=== PATIENT | male | born 1955 | race American Indian/Alaskan Native ===

== ENCOUNTER 2018-06-28 12:57 | Inpatient (IN) | payer MEDICARE ==
[2018-06-28] MEDS ORDERED: NACL 0.9% 500 ML 500 ML IV ONE (14:05)
[2018-06-28] MEDS ORDERED: MORPHINE IV ONE (14:06)
[2018-06-28] MEDS ORDERED: ZOFRAN IV ONE (14:06)
[2018-06-28] MEDS ORDERED: TORADOL IV ONE (14:06)
[2018-06-28 14:43] LABS: Basophils % (Auto) 0.3 % (0.0-1.8); Eosinophils % (Auto) 0.2 % (0.0-4.3); Hematocrit 38.6 % (35.5-45.6); Hemoglobin 12.9 gm/dl (11.8-15.2); Lymphocytes # (Auto) 0.4 K/mm3 (1.2-5.4); Lymphocytes % (Auto) 7.9 % (13.4-35.0); Mean Corpuscular HGB Conc 33 % (32-34); Mean Corpuscular Volume 93 fl (84-94); Monocytes # (Auto) 0.4 K/mm3 (0.0-0.8); Monocytes % (Auto) 7.7 % (0.0-7.3); Platelet Count 298 K/mm3 (140-440); Red Blood Count 4.18 M/mm3 (3.65-5.03); Red Cell Distribution Width 13.1 % (13.2-15.2)
--- NOTE | 2018-06-28 15:07 | Emergency Department Report ---
ED Abdominal Pain HPI - General Chief Complaint: Recheck/Abnormal Lab/Rx Stated Complaint: ABNORMAL LABS Time Seen by Provider: 06/28/18 13:55 Source: EMS Mode of arrival: Ambulatory Limitations: Physical Limitation - History of Present Illness Initial Comments: 63-year-old male with past medical history of cerebral palsy, hypertension, CVA, CHF, and arthritis this is also complaints of abdominal pain. Is unclear how long patient has been hurting. He presents from [facility] with abdominal and obviously distended abdomen. Rehabilitation nursing sheet states reason for transfer as hypotension but then documents a BP of 120/80 at the long term. Other long term vital signs also were unremarkable. Recent head injury and abdominal x-ray 1 view performance on 06/24/2018 and shows mild colonic ileus that was performed at the rehabilitation place. Patient complains of decreased appetite. Last bowel movement unknown and complains of moderate abdominal pain worse with palpation. He complains of decreased appetite but no reports of vomiting. Patient also has a Gomez catheter and denies history of previous abdominal surgeries. Severity scale (0 -10): 8 - Related Data Home Medications Medication Instructions Recorded Confirmed Last Taken Acetaminophen [Tylenol] 650 mg PO Q4H PRN 02/10/18 02/18/18 Unknown AtorvaSTATin [Lipitor] 10 mg PO QHS 02/10/18 02/18/18 Unknown Baclofen 20 mg PO Q8H 02/10/18 02/18/18 Unknown Calcium Carbonate/Vitamin D3 1 each PO BID 02/10/18 02/18/18 Unknown [Calcium 600-Vit D3 400 Tablet] Clopidogrel [Plavix] 75 mg PO QDAY 02/10/18 02/18/18 Unknown Duloxetine HCl [Cymbalta] 60 mg PO DAILY 02/10/18 02/18/18 Unknown Isosorbide Dinitrate 30 mg PO DAILY 02/10/18 02/18/18 Unknown Linaclotide [Linzess] 290 mcg PO QDAY 02/10/18 02/18/18 Unknown Lisinopril [Zestril TAB] 10 mg PO QDAY 02/10/18 02/18/18 Unknown Omeprazole 20 mg PO DAILY 02/10/18 02/18/18 Unknown Sennosides [Senokot] 17.2 mg PO QHS 02/10/18 02/18/18 Unknown Digoxin [Digox] 125 mcg PO DAILY 02/18/18 02/18/18 Unknown [place] 5-325 Tablet 5 - 325 mg PO BID PRN 02/18/18 02/18/18 Unknown Allergies Allergy/AdvReac Type Severity Reaction Status Date / Time No Known Allergies Allergy Unverified 02/10/18 16:42 ED Review of Systems ROS: Stated complaint: ABNORMAL LABS Other details as noted in HPI Comment: All other systems reviewed and negative ED Past Medical Hx - Past Medical History Previous Medical History?: Yes Hx Hypertension: Yes Hx CVA: Yes Hx Heart Attack/AMI: No Hx Congestive Heart Failure: Yes Hx Diabetes: No Hx Deep Vein Thrombosis: No Hx Pulmonary Embolism: No Hx GERD: Yes Hx Liver Disease: No Hx Renal Disease: No Hx Sickle Cell Disease: No Hx Arthritis: Yes Hx Headaches / Migraines: No Hx Seizures: No Hx Kidney Stones: No Hx Psychiatric Treatment: No Hx Asthma: No Hx COPD: No Hx Tuberculosis: No Hx Dementia: No Hx HIV: (unknown) - Surgical History Past Surgical History?: Yes Hx Coronary Stent: No Hx Open Heart Surgery: No Hx Pacemaker: No Hx Internal Defibrillator: No Hx Cholecystectomy: No Hx Appendectomy: No Hx Breast Surgery: No Additional Surgical History: unknown - Social History Smoking Status: Unknown if ever smoked Substance Use Type: None - Medications Home Medications: Home Medications Medication Instructions Recorded Confirmed Last Taken Type Acetaminophen [Tylenol] 650 mg PO Q4H PRN 02/10/18 02/18/18 Unknown History AtorvaSTATin [Lipitor] 10 mg PO QHS 02/10/18 02/18/18 Unknown History Baclofen 20 mg PO Q8H 02/10/18 02/18/18 Unknown History Calcium Carbonate/Vitamin D3 1 each PO BID 02/10/18 02/18/18 Unknown History [Calcium 600-Vit D3 400 Tablet] Clopidogrel [Plavix] 75 mg PO QDAY 02/10/18 02/18/18 Unknown History Duloxetine HCl [Cymbalta] 60 mg PO DAILY 02/10/18 02/18/18 Unknown History Isosorbide Dinitrate 30 mg PO DAILY 02/10/18 02/18/18 Unknown History Linaclotide [Linzess] 290 mcg PO QDAY 02/10/18 02/18/18 Unknown History Lisinopril [Zestril TAB] 10 mg PO QDAY 02/10/18 02/18/18 Unknown History Omeprazole 20 mg PO DAILY 02/10/18 02/18/18 Unknown History Sennosides [Senokot] 17.2 mg PO QHS 02/10/18 02/18/18 Unknown History Digoxin [Digox] 125 mcg PO DAILY 02/18/18 02/18/18 Unknown History [place] 5-325 Tablet 5 - 325 mg PO BID PRN 02/18/18 02/18/18 Unknown History ED Physical Exam - General Limitations: Physical Limitation - Other Other exam information: General: No limitations, patient is alert in no acute distress Head exam: Atraumatic, normocephalic Eyes exam: Normal appearance, ENT: Moist mucous membrane, normal oropharynx Neck exam: Normal inspection, full range of motion, no meningismus nontender Respiratory exam: Clear to auscultation bilateral, no wheezes, rales, crackles Cardiovascular: Mild tachycardia, systolic murmur Abdomen: From an significantly distended abdomen with generalized tenderness. Increased bowel sounds. No rebound or guarding Extremity: Full range of motion normal inspection no deformity Back: Normal Inspection, full range of motion, no tenderness Neurologic: Alert, some mildly slurred speech. Moves upper extremities equally but does have some muscle atrophy of extremities. Appears to be functionally paraplegic with minimal movement to lower extremities Psychiatric: normal affect, normal mood Skin: Warm, dry, intact ED Course Vital Signs 06/28/18 06/28/18 06/28/18 13:40 14:05 14:12 Temperature 98 F 97.8 F Pulse Rate 86 107 H 103 H Respiratory 18 19 16 Rate Blood Pressure 120/80 Blood Pressure 129/82 [Left] O2 Sat by Pulse 100 97 100 Oximetry 06/28/18 06/28/18 06/28/18 14:13 14:30 15:30 Temperature Pulse Rate 111 H 100 H Respiratory 18 19 15 Rate Blood Pressure 117/77 125/85 Blood Pressure [Left] O2 Sat by Pulse 94 95 Oximetry 06/28/18 06/28/18 16:30 17:00 Temperature Pulse Rate 102 H 101 H Respiratory 17 16 Rate Blood Pressure 122/88 112/88 Blood Pressure [Left] O2 Sat by Pulse 94 Oximetry - Consultations Consultation #1: 06/28/18 17:56 Dr Morgan came down to the ED to examine pt. awaiting ct report 06/28/18 19:49 Dr Morgan rec admission, will place rectal tube if available in the ED. ED Medical Decision Making - Lab Data Result diagrams: 06/28/18 14:16 06/28/18 14:16 Lab Results 06/28/18 06/28/18 06/28/18 Range/Units 14:16 14:16 15:13 WBC 5.4 (4.5-11.0) K/mm3 RBC 4.18 (3.65-5.03) M/mm3 Hgb 12.9 (11.8-15.2) gm/dl Hct 38.6 (35.5-45.6) % MCV 93 (84-94) fl MCH 31 (28-32) pg MCHC 33 (32-34) % RDW 13.1 L (13.2-15.2) % Plt Count 298 (140-440) K/mm3 Lymph % (Auto) 7.9 L (13.4-35.0) % Page % (Auto) 7.7 H (0.0-7.3) % Eos % (Auto) 0.2 (0.0-4.3) % Baso % (Auto) 0.3 (0.0-1.8) % Lymph # 0.4 L (1.2-5.4) K/mm3 Page # 0.4 (0.0-0.8) K/mm3 Eos # 0.0 (0.0-0.4) K/mm3 Baso # 0.0 (0.0-0.1) K/mm3 Seg Neutrophils % 83.9 H (40.0-70.0) % Seg Neutrophils # 4.6 (1.8-7.7) K/mm3 Sodium 128 L (137-145) mmol/L Potassium 3.0 L (3.6-5.0) mmol/L Chloride 89.3 L (98-107) mmol/L Carbon Dioxide 23 (22-30) mmol/L Anion Gap 19 mmol/L BUN 6 L (9-20) mg/dL Creatinine 0.4 L (0.8-1.5) mg/dL Estimated GFR > 60 ml/min BUN/Creatinine Ratio 15 % Glucose 97 (75-100) mg/dL Calcium 9.1 (8.4-10.2) mg/dL Phosphorus (2.5-4.5) mg/dL Magnesium 1.70 (1.7-2.3) mg/dL Total Bilirubin 0.80 (0.1-1.2) mg/dL AST 14 (5-40) units/L ALT 12 (7-56) units/L Alkaline Phosphatase 58 (35-129) units/L Total Protein 7.3 (6.3-8.2) g/dL Albumin 4.2 (3.9-5) g/dL Albumin/Globulin Ratio 1.4 % Lipase 15 (13-60) units/L /11/08 Range/Units 19:02 WBC (4.5-11.0) K/mm3 RBC (3.65-5.03) M/mm3 Hgb (11.8-15.2) gm/dl Hct (35.5-45.6) % MCV (84-94) fl MCH (28-32) pg MCHC (32-34) % RDW (13.2-15.2) % Plt Count (140-440) K/mm3 Lymph % (Auto) (13.4-35.0) % Page % (Auto) (0.0-7.3) % Eos % (Auto) (0.0-4.3) % Baso % (Auto) (0.0-1.8) % Lymph # (1.2-5.4) K/mm3 Page # (0.0-0.8) K/mm3 Eos # (0.0-0.4) K/mm3 Baso # (0.0-0.1) K/mm3 Seg Neutrophils % (40.0-70.0) % Seg Neutrophils # (1.8-7.7) K/mm3 Sodium (137-145) mmol/L Potassium (3.6-5.0) mmol/L Chloride (98-107) mmol/L Carbon Dioxide (22-30) mmol/L Anion Gap mmol/L BUN (9-20) mg/dL Creatinine (0.8-1.5) mg/dL Estimated GFR ml/min BUN/Creatinine Ratio % Glucose (75-100) mg/dL Calcium (8.4-10.2) mg/dL Phosphorus 4.00 (2.5-4.5) mg/dL Magnesium 1.70 (1.7-2.3) mg/dL Total Bilirubin (0.1-1.2) mg/dL AST (5-40) units/L ALT (7-56) units/L Alkaline Phosphatase (35-129) units/L Total Protein (6.3-8.2) g/dL Albumin (3.9-5) g/dL Albumin/Globulin Ratio % Lipase (13-60) units/L - Radiology Data Radiology results: report reviewed PROCEDURE: XR ABD SERIES W CXR 1V TECHNIQUE: Acute abdominal series, single view chest and 3 views of the abdomen. HISTORY: abd distention COMPARISONS: None currently available. FINDINGS: Lungs are clear. Moderate to marked distention of the large and small bowel loops. No obvious pneumatosis or pneumoperitoneum. No significant air-fluid levels. No suspicious calcifications overlying the renal shadows. Pelvic phleboliths. Degenerative changes are present in the spine and hips. IMPRESSION: * Nonspecific bowel gas pattern. Differential diagnosis includes obstruction, severe enteritis, and ileus. Further imaging with a CT abdomen pelvis may be helpful if clinically indicated. PROCEDURE: CT ABDOMEN PELVIS W CON (ORAL AND IV CONTRAST GIVEN) TECHNIQUE: Computerized axial tomography of the abdomen and pelvis was performed after the IV injection of iodinated nonionic contrast. CT DOSE LENGTH PRODUCT: 1123.6 mGycm HISTORY: abdominal distention COMPARISONS: None . FINDINGS: Visualized lower thorax: Bilateral lung base scarring. Liver: Normal size and attenuation. Spleen: Normal size and attenuation. Gallbladder and biliary system: Gallbladder is present. Pancreas: Normal. Adrenals: Normal. Kidneys: Possible nonobstructing right kidney lower pole 3 mm calculus versus excreted contrast material. GI tract: The colon is diffusely distended with fluid and air up to 8.8 cm transverse, to the level of the distal rectum . Small bowel loops are not distended. No prior studies are available to evaluate the patient's baseline, however cannot exclude a distal colonic obstruction. No acute inflammation Lymph nodes and mesentery: Normal. Vasculature: Normal.. Bladder: Decompressed with Gomez catheter. Reproductive organs: Normal. Peritoneum: No free fluid. Musculoskeletal structures: Lumbar spine degenerative disc changes. Other: None . IMPRESSION: Diffuse colonic dilatation with air and fluid to the level of the distal rectum is of uncertain chronicity. Cannot fully exclude distal rectal obstruction. Recommend follow-up . - Medical Decision Making case d/w Gen surgery NS 500ml provided for hyponatremia IV kcl 20meq ordered for hypokalemia plan to admit to hospital for further tx based on imaging studies - Differential Diagnosis obstruction, ileus, ascites Critical Care Time: No Critical care attestation.: If time is entered above; I have spent that time in minutes in the direct care of this critically ill patient, excluding procedure time. ED Disposition Clinical Impression: Abdominal distension, Dilatation of colon, Cerebral palsy, Bedbound, Hyponatr emia, Hypokalemia Disposition: OP ADMIT IP TO THIS HOSP Is pt being admited?: Yes Condition: Stable Time of Disposition: 19:53 (Dr Mora/hosp)
[2018-06-28 15:09] LABS: Alanine Aminotransferase 12 units/L (7-56); Albumin 4.2 g/dL (3.9-5); BUN/Creatinine Ratio 15; Blood Urea Nitrogen 6 mg/dL (9-20); Calcium 9.1 mg/dL (8.4-10.2); Hemolysis Index 3
--- NOTE | 2018-06-28 15:53 | XRay Report ---
PROCEDURE: XR ABD SERIES W CXR 1V TECHNIQUE: Acute abdominal series, single view chest and 3 views of the abdomen. HISTORY: abd distention COMPARISONS: None currently available. FINDINGS: Lungs are clear. Moderate to marked distention of the large and small bowel loops. No obvious pneumatosis or pneumoper itoneum. No significant air-fluid levels. No suspicious calcifications overlying the renal shadows. Pelvic phleboliths. Degenerative changes are present in the spine and hips. IMPRESSION: * Nonspecific bowel gas pattern. Differential diagnosis includes obstruction, severe enteritis, and ileus. Further imaging with a CT abdomen pelvis may be helpful if clinically indicated. * 06/28/2018 at 1251 PT: I, Mauricio Sarah MD, discussed the findings over the phone with Dr. Banda. This document is electronically signed by Mauricio Sarah MD., June 28 2018 03:51:51 PM ET
[2018-06-28] MEDS ORDERED: MORPHINE ONE (18:26)
[2018-06-28] MEDS: KCL 10MEQ/100ML 10 MEQ/100 ML BAG IV SCH ×2 (18:27→20:18)
--- NOTE | 2018-06-28 18:33 | Consultation ---
History of Present Illness Consult date: 06/28/18 Reason for consult: abdominal pain Chief complaint: abdominal distension, pain - History of present illness History of present illness: 63 yo M with hx of cerebral palsy [facility] abnormal labs and hypotension. The family is at bedside but unsure of why the patient was brought to the hospital. The patient can provide some history when asked but is difficult to understand due to his speech. The patient was normotensive on arrival to ER. He c/o abdominal distension. He has not had vomiting but states sometimes it feels like the food is going to come back up. He is having abdominal discomfort but cannot elaborate. He is having BMs and flatus, last BM today. He has had symptoms like this in the past which did not require surgery. No f/c, cp, sob. Abd xray performed several days ago showed "mild colonic ileus" per the report. Pt is immobile, nonambulatory and in frequently turned and [facility] patient. Last cscope approximately 5 years ago, cannot remember results. Past History Past Medical History: arthritis, hypertension, stroke, other (cerebral palsy, CHF) Medications and Allergies Allergies Allergy/AdvReac Type Severity Reaction Status Date / Time No Known Allergies Allergy Unverified 02/10/18 16:42 Home Medications Medication Instructions Recorded Confirmed Last Taken Type Acetaminophen [Tylenol] 650 mg PO Q4H PRN 02/10/18 02/18/18 Unknown History AtorvaSTATin [Lipitor] 10 mg PO QHS 02/10/18 02/18/18 Unknown History Baclofen 20 mg PO Q8H 02/10/18 02/18/18 Unknown History Calcium Carbonate/Vitamin D3 1 each PO BID 02/10/18 02/18/18 Unknown History [Calcium 600-Vit D3 400 Tablet] Clopidogrel [Plavix] 75 mg PO QDAY 02/10/18 02/18/18 Unknown History Duloxetine HCl [Cymbalta] 60 mg PO DAILY 02/10/18 02/18/18 Unknown History Isosorbide Dinitrate 30 mg PO DAILY 02/10/18 02/18/18 Unknown History Linaclotide [Linzess] 290 mcg PO QDAY 02/10/18 02/18/18 Unknown History Lisinopril [Zestril TAB] 10 mg PO QDAY 02/10/18 02/18/18 Unknown History Omeprazole 20 mg PO DAILY 02/10/18 02/18/18 Unknown History Sennosides [Senokot] 17.2 mg PO QHS 02/10/18 02/18/18 Unknown History Digoxin [Digox] 125 mcg PO DAILY 02/18/18 02/18/18 Unknown History [place] 5-325 Tablet 5 - 325 mg PO BID PRN 02/18/18 02/18/18 Unknown History Review of Systems All systems: negative (limited ROS performed and negative except for that listed in HPI) Exam Vital Signs Temp Pulse Resp BP Pulse Ox 98 F 86 18 120/80 100 06/28/18 13:40 06/28/18 13:40 06/28/18 13:40 06/28/18 13:40 06/28/18 13:40 Narrative exam: Gen: Awake and alert. NAD. Answers questions appropriately ENT: No scleral icterus or conjunctival pallor CV: s1, s2+ resp; even and unlabored Abd: soft, distended, NT. No r/r/g Ext: no c/c/e, contracted Rectal exam - normal tone, no blood, no stool in rectal vault but rectal vault is dilated. No masses palpable. 20F arnold catheter gently inserted using digital guidance to approximately 8 cm. There was immediate ko of air out of tubing. Tubing connected to arnold bag with hole cut in the plastic for decompression. Tube secured to buttock with tape. (receiving lead present) Results - Labs 06/28/18 14:16 06/28/18 14:16 Abnormal lab results 06/28/18 06/28/18 Range/Units 14:16 14:16 RDW 13.1 L (13.2-15.2) % Lymph % (Auto) 7.9 L (13.4-35.0) % [place] % (Auto) 7.7 H (0.0-7.3) % Lymph # 0.4 L (1.2-5.4) K/mm3 Seg Neutrophils % 83.9 H (40.0-70.0) % Sodium 128 L (137-145) mmol/L Potassium 3.0 L (3.6-5.0) mmol/L Chloride 89.3 L (98-107) mmol/L BUN 6 L (9-20) mg/dL Creatinine 0.4 L (0.8-1.5) mg/dL Diabetes panel 06/28/18 Range/Units 14:16 Sodium 128 L (137-145) mmol/L Potassium 3.0 L (3.6-5.0) mmol/L Chloride 89.3 L (98-107) mmol/L Carbon Dioxide 23 (22-30) mmol/L BUN 6 L (9-20) mg/dL Creatinine 0.4 L (0.8-1.5) mg/dL Glucose 97 (75-100) mg/dL Calcium 9.1 (8.4-10.2) mg/dL AST 14 (5-40) units/L ALT 12 (7-56) units/L Alkaline Phosphatase 58 (35-129) units/L Total Protein 7.3 (6.3-8.2) g/dL Albumin 4.2 (3.9-5) g/dL Calcium panel 06/28/18 Range/Units 14:16 Calcium 9.1 (8.4-10.2) mg/dL Albumin 4.2 (3.9-5) g/dL Pituitary panel 06/28/18 Range/Units 14:16 Sodium 128 L (137-145) mmol/L Potassium 3.0 L (3.6-5.0) mmol/L Chloride 89.3 L (98-107) mmol/L Carbon Dioxide 23 (22-30) mmol/L BUN 6 L (9-20) mg/dL Creatinine 0.4 L (0.8-1.5) mg/dL Glucose 97 (75-100) mg/dL Calcium 9.1 (8.4-10.2) mg/dL Adrenal panel 06/28/18 Range/Units 14:16 Sodium 128 L (137-145) mmol/L Potassium 3.0 L (3.6-5.0) mmol/L Chloride 89.3 L (98-107) mmol/L Carbon Dioxide 23 (22-30) mmol/L BUN 6 L (9-20) mg/dL Creatinine 0.4 L (0.8-1.5) mg/dL Glucose 97 (75-100) mg/dL Calcium 9.1 (8.4-10.2) mg/dL Total Bilirubin 0.80 (0.1-1.2) mg/dL AST 14 (5-40) units/L ALT 12 (7-56) units/L Alkaline Phosphatase 58 (35-129) units/L Total Protein 7.3 (6.3-8.2) g/dL Albumin 4.2 (3.9-5) g/dL - Imaging Abdominal x-ray: report reviewed, image reviewed CT scan - abdomen: report reviewed, image reviewed CT scan - pelvis: report reviewed, image reviewed Assessment and Plan 63 yo M with 1. colonic ileus 2. electrolyte abnormalities 3. cerebral palsy Ct A/P - dilated colon. cannot r/o distal rectal obstruction Plan: No masses felt on rectal exam and immediate evacuation of air upon insertion of rectal tube. Pt with bowel function. Doubt distal rectal obstruction. 1. ok to have clear liquids 2. IVF 3. replace lytes 4. BMP in am 5. rectal tube placed to help with colonic decompression 6. physical therapy consult. patient needs to be OOB BID and turned q2. Explained plan to family at bedside and on the telephone. Thank you, please call with questions.
--- NOTE | 2018-06-28 19:24 | Cat Scan Report ---
PROCEDURE: CT ABDOMEN PELVIS W CON TECHNIQUE: Computerized axial tomography of the abdomen and pelvis was performed after the IV inject ion of iodinated nonionic contrast. CT DOSE LENGTH PRODUCT: 1123.6 mGycm HISTORY: abdominal distention COMPARISONS: None . FINDINGS: Visualized lower thorax: Bilateral lung base scarring. Liver: Normal size and attenuation. Spleen: Normal size and attenuation. Gallbladder and biliary system: Gallbladder is present. Pancreas: Normal. Adrenals: Normal. Kidneys: Possible nonobstructing right kidney lower pole 3 mm calculus versus excreted contrast mater ial. GI tract: The colon is diffusely distended with fluid and air up to 8.8 cm transverse, to the level of the distal rectum . Small bowel loops are not distended. No prior studies are available to evaluat e the patient's baseline, however cannot exclude a distal colonic obstruction. No acute inflammation Lymph nodes and mesentery: Normal. Vasculature: Normal.. Bladder: Decompressed with Gomez catheter. Reproductive organs: Normal. Peritoneum: No free fluid. Musculoskeletal structures: Lumbar spine degenerative disc changes. Other: None . IMPRESSION: Diffuse colonic dilatation with air and fluid to the level of the distal rectum is of uncertain chron icity. Cannot fully exclude distal rectal obstruction. Recommend follow-up . This document is electronically signed by Ellen Pretty MD., June 28 2018 07:22:26 PM ET
--- NOTE | 2018-06-28 19:54 | History and Physical Report ---
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 Pt is confused and provided limited incoherent history. Pt history taken from medical record, and ED staff. As per SNF staff, the patient was found to have hypotension, confusion and weakness today. EMS was notified and upon arrival the patient was found to be in distress with abdominal distention. Pt was subsequently transported to [facility] for further care and evaluation. Pt seen and evaluated in ED and found to have Encephalopathy, Colonic Ileus(Megacolon), Hyponatremia, and Hyokalemia. Surgical team consulted in ED. Pt admitted to surgical floor. No further history obtainable. Prior admission on 02/18/18 reviewed. All listed medication reconciled at time of admission. Complete medication list pending at time of admission. Past History Past Medical History: arthritis, hypertension, stroke, other (cerebral palsy, CHF) Medications and Allergies Allergies Allergy/AdvReac Type Severity Reaction Status Date / Time No Known Allergies Allergy Unverified 02/10/18 16:42 Home Medications Medication Instructions Recorded Confirmed Last Taken Type Acetaminophen [Tylenol] 650 mg PO Q4H PRN 02/10/18 02/18/18 Unknown History AtorvaSTATin [Lipitor] 10 mg PO QHS 02/10/18 02/18/18 Unknown History Baclofen 20 mg PO Q8H 02/10/18 02/18/18 Unknown History Calcium Carbonate/Vitamin D3 1 each PO BID 02/10/18 02/18/18 Unknown History [Calcium 600-Vit D3 400 Tablet] Clopidogrel [Plavix] 75 mg PO QDAY 02/10/18 02/18/18 Unknown History Duloxetine HCl [Cymbalta] 60 mg PO DAILY 02/10/18 02/18/18 Unknown History Isosorbide Dinitrate 30 mg PO DAILY 02/10/18 02/18/18 Unknown History Linaclotide [Linzess] 290 mcg PO QDAY 02/10/18 02/18/18 Unknown History Lisinopril [Zestril TAB] 10 mg PO QDAY 02/10/18 02/18/18 Unknown History Omeprazole 20 mg PO DAILY 11/21/18 11/29/18 Unknown History Sennosides [Senokot] 17.2 mg PO QHS 02/10/18 02/18/18 Unknown History Digoxin [Digox] 125 mcg PO DAILY 02/18/18 02/18/18 Unknown History [place] 5-325 Tablet 5 - 325 mg PO BID PRN 02/18/18 02/18/18 Unknown History Review of Systems ROS unobtainable: due to mental status Exam - Constitutional Vitals: Temp Pulse Resp BP Pulse Ox 97.8 F 101 H 16 112/88 94 06/28/18 14:12 06/28/18 17:00 06/28/18 17:00 06/28/18 17:00 06/28/18 16:30 General appearance: Present: mild distress - EENT Eyes: Present: PERRL ENT: hearing intact, clear oral mucosa - Neck Neck: Present: supple, normal ROM - Respiratory Respiratory effort: normal Respiratory: bilateral: CTA - Cardiovascular Heart Sounds: Present: S1 & S2. Absent: rub, click - Extremities Extremities: pulses symmetrical, No edema Peripheral Pulses: within normal limits - Abdominal General gastrointestinal: Present: soft, distended, normal bowel sounds. Absent: hepatomegaly, splenomegaly, mass Male genitourinary: Absent: tender, right inguinal hernia, left inguinal hernia - Rectal Rectal Exam: normal exam-external/orifice - Integumentary Integumentary: Absent: clear, dry - Musculoskeletal Musculoskeletal: generalized weakness - Psychiatric Psychiatric: no appropriate mood/affect, no intact judgment & insight, no memory intact - Neurologic Neurologic: focal deficits, moves all extremities, no gait normal Results - Labs CBC & Chem 7: 06/28/18 14:16 06/28/18 14:16 Labs: Abnormal lab results 06/28/18 06/28/18 Range/Units 14:16 14:16 RDW 13.1 L (13.2-15.2) % Lymph % (Auto) 7.9 L (13.4-35.0) % [place] % (Auto) 7.7 H (0.0-7.3) % Lymph # 0.4 L (1.2-5.4) K/mm3 Seg Neutrophils % 83.9 H (40.0-70.0) % Sodium 128 L (137-145) mmol/L Potassium 3.0 L (3.6-5.0) mmol/L Chloride 89.3 L (98-107) mmol/L BUN 6 L (9-20) mg/dL Creatinine 0.4 L (0.8-1.5) mg/dL Assessment and Plan - Patient Problems (1) Abdominal distension Current Visit: Yes Status: Acute Plan to address problem: CT ABdomen pelvis, ABdomen xray, Repeat abdomen x ray in am, surgery team consulted in ED, bowel rest, IVF resuscitation therapy, lactic acid level, serial abdominal exam. (2) Cerebral palsy Current Visit: Yes Status: Acute Qualifiers: Cerebral palsy type: unspecified type Qualified Code(s): G80.9 - Cerebral palsy, unspecified Plan to address problem: Aspiration precautions, neuro checks, seizure precautions, fall precautions, supportive care. (3) Hypokalemia Current Visit: Yes Status: Acute Plan to address problem: repleted in ED, repeat bmp in AM. (4) Hyponatremia Current Visit: Yes Status: Acute Plan to address problem: IVF resuscitation therapy, repeat bmp in am. (5) DVT prophylaxis Current Visit: No Status: Acute Plan to address problem: SCD to BLE while in bed.
[2018-06-28] MEDS ORDERED: PROVENTIL IH PRN (20:00)
[2018-06-28] MEDS ORDERED: SODIUM CHLORIDE FLUSH SYRINGE 10 ML IV PRN (20:00)
[2018-06-28] MEDS ORDERED: KCL 10MEQ/100ML 10 MEQ/100 ML BAG IV ONE (20:12)
[2018-06-28] MEDS ORDERED: ACETAMINOPHEN 650 MG PO PRN (20:41)
[2018-06-28] MEDS ORDERED: TYLENOL PO PRN (20:51)
[2018-06-28] MEDS ORDERED: SENNOSIDES 17.2 MG PO SCH (22:00)
[2018-06-28] MEDS: LOVENOX SUB-Q SCH (22:18)
[2018-06-28] MEDS: SODIUM CHLORIDE FLUSH SYRINGE 10 ML IV SCH (22:19)
[2018-06-28] MEDS: NACL 0.9% 1000 ML 1,000 ML IV SCH (22:19)
[2018-06-28] MEDS: SENOKOT PO SCH (22:36)
[2018-06-29 04:57] LABS: Basophils % (Auto) 0.5 % (0.0-1.8); Eosinophils % (Auto) 0.7 % (0.0-4.3); Hematocrit 35.6 % (35.5-45.6); Hemoglobin 11.9 gm/dl (11.8-15.2); Lymphocytes # (Auto) 0.7 K/mm3 (1.2-5.4); Lymphocytes % (Auto) 16.8 % (13.4-35.0); Mean Corpuscular HGB Conc 34 % (32-34); Mean Corpuscular Volume 93 fl (84-94); Monocytes # (Auto) 0.4 K/mm3 (0.0-0.8); Platelet Count 282 K/mm3 (140-440); Red Blood Count 3.81 M/mm3 (3.65-5.03); Red Cell Distribution Width 12.9 % (13.2-15.2)
[2018-06-29 05:15] LABS: BUN/Creatinine Ratio 13; Blood Urea Nitrogen 5 mg/dL (9-20); Calcium 8.8 mg/dL (8.4-10.2); Hemolysis Index 4
--- NOTE | 2018-06-29 08:03 | XRay Report ---
ABDOMEN, 2 views: History: Abdominal pain. Diffuse marked dilatation of the colon is essentially unchanged since the CT abdomen pelvis performed 06/28/18. Oral contrast has advanced into the proximal colon. There is mild stool within the distal colon. No obvious dilated small bowel loops. No free air is visualized on the upright view. The lungs are grossly clear. IMPRESSION: No change in the diffuse colonic dilatation of uncertain etiology.
[2018-06-29] MEDS: NACL 0.9% 1000 ML 1,000 ML IV SCH (08:20)
[2018-06-29] MEDS: PROTONIX PO SCH (09:36)
[2018-06-29] MEDS: SODIUM CHLORIDE FLUSH SYRINGE 10 ML IV SCH ×2 (09:36→21:01)
[2018-06-29] MEDS: ZESTRIL PO SCH (10:00)
--- NOTE | 2018-06-29 10:23 | Progress Note ---
Assessment and Plan Assessment and plan: Ileus Admitted to surgical floor Surgeon following Start mechanical soft diet Re-evaluate tomorrow Cerebral palsy Conservative management Hyponatremia Improving 130 today Recheck tomorrow Hypokalemia Resolved after replacement Debility Hypertension Monitor BP. History Interval history: feels better Less abd pain Hospitalist Physical - Physical exam Narrative exam: Gen: Not in acute distress, lying in bed HEENT: Normocephalic, atraumatic Heart: S1 and S2 reg, no murmurs, rubs or gallop Lungs: Bilateral ronchi, no crackles, Abd: soft, mild tender, mild distension, bowel sounds present Ext: No edema, no clubbing, no cyanosis Neuro: AAO x 3, no focal signs, moves all ext Psych:Normal mood - Constitutional Vitals: Temp Pulse Resp BP Pulse Ox 97.8 F 92 H 15 117/80 100 06/29/18 09:45 06/29/18 09:45 06/29/18 09:45 06/29/18 09:45 06/29/18 09:45 General appearance: Present: mild distress Results - Labs CBC & Chem 7: 06/29/18 04:20 06/30/18 07:27 Labs: Laboratory Last Values WBC 4.1 K/mm3 (4.5-11.0) L 06/29/18 04:20 RBC 3.81 M/mm3 (3.65-5.03) 06/29/18 04:20 Hgb 11.9 gm/dl (11.8-15.2) 06/29/18 04:20 Hct 35.6 % (35.5-45.6) 06/29/18 04:20 MCV 93 fl (84-94) 06/29/18 04:20 MCH 31 pg (28-32) 06/29/18 04:20 MCHC 34 % (32-34) 06/29/18 04:20 RDW 12.9 % (13.2-15.2) L 06/29/18 04:20 Plt Count 282 K/mm3 (140-440) 06/29/18 04:20 Lymph % (Auto) 16.8 % (13.4-35.0) 06/29/18 04:20 [place] % (Auto) 11.0 % (0.0-7.3) H 06/29/18 04:20 Eos % (Auto) 0.7 % (0.0-4.3) 06/29/18 04:20 Baso % (Auto) 0.5 % (0.0-1.8) 06/29/18 04:20 Lymph # 0.7 K/mm3 (1.2-5.4) L 06/29/18 04:20 Scott # 0.4 K/mm3 (0.0-0.8) 06/29/18 04:20 Eos # 0.0 K/mm3 (0.0-0.4) 06/29/18 04:20 Baso # 0.0 K/mm3 (0.0-0.1) 06/29/18 04:20 Seg Neutrophils % 71.0 % (40.0-70.0) H 06/29/18 04:20 Seg Neutrophils # 2.9 K/mm3 (1.8-7.7) 06/29/18 04:20 Sodium 130 mmol/L (137-145) L 06/29/18 04:20 Potassium 4.0 mmol/L (3.6-5.0) D 06/29/18 04:20 Chloride 92.9 mmol/L (98-107) L 06/29/18 04:20 Carbon Dioxide 25 mmol/L (22-30) 06/29/18 04:20 Anion Gap 16 mmol/L 06/29/18 04:20 BUN 5 mg/dL (9-20) L 06/29/18 04:20 Creatinine 0.4 mg/dL (0.8-1.5) L 06/29/18 04:20 Estimated GFR > 60 ml/min 06/29/18 04:20 BUN/Creatinine Ratio 13 % 06/29/18 04:20 Glucose 79 mg/dL (75-100) 06/29/18 04:20 POC Glucose 83 (70-105) 06/28/18 21:37 Lactic Acid 0.80 mmol/L (0.7-2.0) 06/29/18 04:30 Calcium 8.8 mg/dL (8.4-10.2) 06/29/18 04:20 Phosphorus 4.00 mg/dL (2.5-4.5) 06/28/18 19:02 Magnesium 1.70 mg/dL (1.7-2.3) 04/08/19 19:02 Total Bilirubin 0.80 mg/dL (0.1-1.2) 06/28/18 14:16 AST 14 units/L (5-40) 06/28/18 14:16 ALT 12 units/L (7-56) 06/28/18 14:16 Alkaline Phosphatase 58 units/L (35-129) 06/28/18 14:16 Total Protein 7.3 g/dL (6.3-8.2) 06/28/18 14:16 Albumin 4.2 g/dL (3.9-5) 06/28/18 14:16 Albumin/Globulin Ratio 1.4 % 06/28/18 14:16 Lipase 15 units/L (13-60) 06/28/18 14:16 Active Medications - Current Medications Current Medications: Generic Name Dose Route Start Last Admin Trade Name Freq PRN Reason Stop Dose Admin Acetaminophen 650 mg 06/28/18 20:51 Tylenol PO Q4H PRN Pain, Mild (1-3) Albuterol 2.5 mg 06/28/18 20:00 Proventil IH Q3HRT PRN Shortness Of Breath Enoxaparin Sodium 40 mg 06/28/18 22:00 06/28/18 22:18 Lovenox SUB-Q 40 mg QDAY@2200 PRINCESS Administration Sodium Chloride 1,000 mls @ 100 mls/hr 06/28/18 21:00 06/29/18 08:20 Nacl 0.9% 1000 Ml IV 100 mls/hr DIRECT PRINCESS Administration Lisinopril 10 mg 06/29/18 10:00 Zestril PO QDAY PRINCESS Pantoprazole Sodium 20 mg 06/29/18 10:00 06/29/18 09:36 Protonix PO 20 mg DAILY PRINCESS Administration Senna 17.2 mg 06/28/18 23:30 06/28/18 22:36 Senokot PO Not Given QHS PRINCESS Sodium Chloride 10 ml 06/28/18 22:00 06/29/18 09:36 Sodium Chloride Flush Syringe 10 Ml IV 10 ml BID PRINCESS Administration Sodium Chloride 10 ml 06/28/18 20:00 Sodium Chloride Flush Syringe 10 Ml IV PRN PRN LINE FLUSH
[2018-06-29] MEDS ORDERED: MAGNESIUM SULFATE 1 GM in WATER FOR INJ (PF) 23 ML IV ONE (11:16)
--- NOTE | 2018-06-29 11:57 | Progress Note ---
Assessment and Plan 63 yo M with 1. colonic ileus 2. electrolyte abnormalities 3. cerebral palsy Ct A/P - dilated colon. cannot r/o distal rectal obstruction Abdominal xray - unchanged colonic dilatation of unknown etiology. Contrast in ascending colon and stool in distal colon Plan: No masses felt on rectal exam and immediate evacuation of air upon insertion of rectal tube. Pt with bowel function. Doubt distal rectal obstruction. Abdominal exam is much improved today. 1. Mechanical soft diet 2. decrease IVF 3. replace lytes 4. monitor sodium 5. continue rectal tube for another day 6. physical therapy consult. patient needs to be OOB BID and turned q2. Anticipate dc tomorrow from surgical standpoint. D/W Dr. Alatorre Thank you, please call with questions. Subjective Date of service: 06/29/18 Narrative: Pt seen and examined. Feeling better. No n/v. He is hungry. He is having bowel movements around rectal tube Objective Vital Signs - 12hr 06/29/18 06/29/18 06/29/18 03:58 08:00 09:22 Temperature 97.9 F 97.8 F Pulse Rate 88 80 84 Respiratory 18 16 15 Rate Blood Pressure 112/83 117/80 Blood Pressure 104/68 [Left] O2 Sat by Pulse 95 97 100 Oximetry 06/29/18 09:45 Temperature 97.8 F Pulse Rate 92 H Respiratory 15 Rate Blood Pressure Blood Pressure 117/80 [Left] O2 Sat by Pulse 100 Oximetry - General physical appearance Narrative Exam: Gen: Awake and alert. NAD CV: S1, S2+ resp: even and unlabored Abd: soft, mildly distended - much improved from exam yesterday. NT Ext: no c/c/e rectal: rectal tube in place with minimal fecal drainage in tubing. - Labs 06/29/18 04:20 06/29/18 04:20 Diabetes panel 06/28/18 06/29/18 Range/Units 14:16 04:20 Sodium 128 L 130 L (137-145) mmol/L Potassium 3.0 L 4.0 D (3.6-5.0) mmol/L Chloride 89.3 L 92.9 L (98-107) mmol/L Carbon Dioxide 23 25 (22-30) mmol/L BUN 6 L 5 L (9-20) mg/dL Creatinine 0.4 L 0.4 L (0.8-1.5) mg/dL Glucose 97 79 (75-100) mg/dL Calcium 9.1 8.8 (8.4-10.2) mg/dL AST 14 (5-40) units/L ALT 12 (7-56) units/L Alkaline Phosphatase 58 (35-129) units/L Total Protein 7.3 (6.3-8.2) g/dL Albumin 4.2 (3.9-5) g/dL Calcium panel 06/28/18 06/28/18 06/29/18 Range/Units 14:16 19:02 04:20 Calcium 9.1 8.8 (8.4-10.2) mg/dL Phosphorus 4.00 (2.5-4.5) mg/dL Albumin 4.2 (3.9-5) g/dL Pituitary panel 06/28/18 06/29/18 Range/Units 14:16 04:20 Sodium 128 L 130 L (137-145) mmol/L Potassium 3.0 L 4.0 D (3.6-5.0) mmol/L Chloride 89.3 L 92.9 L (98-107) mmol/L Carbon Dioxide 23 25 (22-30) mmol/L BUN 6 L 5 L (9-20) mg/dL Creatinine 0.4 L 0.4 L (0.8-1.5) mg/dL Glucose 97 79 (75-100) mg/dL Calcium 9.1 8.8 (8.4-10.2) mg/dL Adrenal panel 06/28/18 06/29/18 Range/Units 14:16 04:20 Sodium 128 L 130 L (137-145) mmol/L Potassium 3.0 L 4.0 D (3.6-5.0) mmol/L Chloride 89.3 L 92.9 L (98-107) mmol/L Carbon Dioxide 23 25 (22-30) mmol/L BUN 6 L 5 L (9-20) mg/dL Creatinine 0.4 L 0.4 L (0.8-1.5) mg/dL Glucose 97 79 (75-100) mg/dL Calcium 9.1 8.8 (8.4-10.2) mg/dL Total Bilirubin 0.80 (0.1-1.2) mg/dL AST 14 (5-40) units/L ALT 12 (7-56) units/L Alkaline Phosphatase 58 (35-129) units/L Total Protein 7.3 (6.3-8.2) g/dL Albumin 4.2 (3.9-5) g/dL
[2018-06-29] MEDS ORDERED: MAGNESIUM SULFATE 1 GM in NACL 0.9% 50 ML IV ONE (13:00)
[2018-06-29] MEDS: SENOKOT PO SCH (21:00)
[2018-06-29] MEDS: LOVENOX SUB-Q SCH (21:00)
[2018-06-30] MEDS: NACL 0.9% 1000 ML 1,000 ML IV SCH (05:05)
[2018-06-30 08:32] LABS: BUN/Creatinine Ratio 10; Blood Urea Nitrogen 3 mg/dL (9-20); Calcium 8.1 mg/dL (8.4-10.2); Hemolysis Index 1
[2018-06-30] MEDS: PROTONIX PO SCH (11:23)
[2018-06-30] MEDS: KCL 10MEQ/100ML 10 MEQ/100 ML BAG IV SCH ×3 (11:28→15:02)
[2018-06-30] MEDS: SODIUM CHLORIDE FLUSH SYRINGE 10 ML IV SCH (11:29)
[2018-06-30] MEDS: ZESTRIL PO SCH (13:03)
--- NOTE | 2018-06-30 14:57 | Progress Note ---
Assessment and Plan 63 yo M with 1. colonic ileus 2. electrolyte abnormalities 3. cerebral palsy Ct A/P - dilated colon. cannot r/o distal rectal obstruction Abdominal xray - unchanged colonic dilatation of unknown etiology. Contrast in ascending colon and stool in distal colon Plan: 1. Mechanical soft diet 2. dc IVF 3. replace K OK to DC from surgery standpoint. Nursing may remove rectal tube upon discharge - discussed with patient's nurse D/W Dr. Alatorre Thank you, please call with questions. Subjective Date of service: 06/30/18 Narrative: Pt seen and examined. Feels well. Says he wants to go back home. No abdominal pain. Tolerating diet. No BM per patient. Objective Vital Signs - 12hr 06/30/18 06/30/18 06/30/18 05:01 08:00 09:40 Temperature 98.7 F 97.8 F 98.6 F Pulse Rate 76 79 91 H Respiratory 18 17 Rate Blood Pressure 140/72 101/58 100/59 O2 Sat by Pulse 96 93 99 Oximetry 06/30/18 13:03 Temperature Pulse Rate 91 H Respiratory Rate Blood Pressure 100/59 O2 Sat by Pulse Oximetry - General physical appearance Narrative Exam: Gen: Awake and alert. NAD CV: S1, S2+ Resp: even and unlabored Abd: soft, NT, ND Rectal: rectal tube in place with liquid stool in bag and tubing - Labs 06/29/18 04:20 06/30/18 07:27 Diabetes panel 06/30/18 Range/Units 07:27 Sodium 137 D (137-145) mmol/L Potassium 3.2 L (3.6-5.0) mmol/L Chloride 101.3 (98-107) mmol/L Carbon Dioxide 27 (22-30) mmol/L BUN 3 L (9-20) mg/dL Creatinine 0.3 L (0.8-1.5) mg/dL Glucose 89 (75-100) mg/dL Calcium 8.1 L (8.4-10.2) mg/dL Calcium panel 06/30/18 Range/Units 07:27 Calcium 8.1 L (8.4-10.2) mg/dL Pituitary panel 06/30/18 Range/Units 07:27 Sodium 137 D (137-145) mmol/L Potassium 3.2 L (3.6-5.0) mmol/L Chloride 101.3 (98-107) mmol/L Carbon Dioxide 27 (22-30) mmol/L BUN 3 L (9-20) mg/dL Creatinine 0.3 L (0.8-1.5) mg/dL Glucose 89 (75-100) mg/dL Calcium 8.1 L (8.4-10.2) mg/dL Adrenal panel 06/30/18 Range/Units 07:27 Sodium 137 D (137-145) mmol/L Potassium 3.2 L (3.6-5.0) mmol/L Chloride 101.3 (98-107) mmol/L Carbon Dioxide 27 (22-30) mmol/L BUN 3 L (9-20) mg/dL Creatinine 0.3 L (0.8-1.5) mg/dL Glucose 89 (75-100) mg/dL Calcium 8.1 L (8.4-10.2) mg/dL
--- NOTE | 2018-06-30 15:43 | Discharge Summary ---
Providers - Providers Date of Admission: 06/28/18 20:00 Date of discharge: 06/30/18 Attending physician: PARMJIT HAINES 06/28/18 17:57 Consult to Physician [CONS] Urgent Comment: Dr. Banda spoke with Dr. Gordon @ [phone] Consulting Provider: VALENTE GORDON Physician Instructions: Reason For Exam: distended abd 06/28/18 20:00 Physical Therapy Evaluation and Treat [CONS] Routine Comment: Reason For Exam: immobility Primary care physician: [employer] TECHNICIAN Hospitalization Condition: Good Hospital course: Patient is 63 yo resident at 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 presents to ED for evaluation. As per SNF staff, the patient was found to have hypotension, confusion and weakness. EMS was notified and upon arrival the patient was found to be in distress with abdominal distention. Pt was subsequently transported to [facility] for further care and evaluation. Pt seen and evaluated in ED and found to have Encephalopathy, Colonic Ileus(Megacolon), Hyponatremia, and Hypokalemia. Surgical team consulted in ED. Pt admitted to surgical floor. NG tube was placed and he was seen by Surgeon.He improved over next two days, distension improved, was started on diet which he toletrated. Ileus improved so was discharged back to SNF on 06/30/18 Total time spent on discharge, 32 mins Disposition: [id number]/[id number] SNF W [facility] CERT - Discharge Diagnoses (1) Ileus Status: Acute (2) Hypotension Status: Acute (3) Hyponatremia Status: Acute (4) HTN (hypertension) Status: Chronic Qualifiers: Hypertension type: essential hypertension Qualified Code(s): I10 - Essential (primary) hypertension (5) CAD (coronary artery disease) Status: Chronic Qualifiers: Coronary Disease-Associated Artery/Lesion type: [place] artery [place] vs. transplanted heart: [place] heart Associated angina: without angina Qualified Code(s): I25.10 - Atherosclerotic heart disease of [place] coronary artery without angina pectoris (6) HLD (hyperlipidemia) Status: Chronic Qualifiers: Hyperlipidemia type: mixed hyperlipidemia Qualified Code(s): E78.2 - Mixed hyperlipidemia (7) Abdominal distension Status: Acute (8) Cerebral palsy Status: Acute Qualifiers: Cerebral palsy type: unspecified type Qualified Code(s): G80.9 - Cerebral palsy, unspecified (9) Bedbound Status: Acute Core Measure Documentation - Palliative Care Palliative Care/ Comfort Measures: Not Applicable - Core Measures Any of the following diagnoses?: none Exam - Constitutional Vitals: Temp Pulse Resp BP Pulse Ox 98.6 F 91 H 17 100/59 99 06/30/18 09:40 06/30/18 13:03 06/30/18 08:00 06/30/18 13:03 06/30/18 09:40 Plan Activity: no restrictions Diet: other (Mechanical soft diet) Additional Instructions: 1.Follow up with PCP in 1 week. 2.Follow up with Dr. Gordon in 1 week Follow up with: PRIMARY CAREMD [Primary Care Provider] - 7 Days
[2018-06-30 17:28] VITALS: BP 145/88
== END 2018-06-30 18:30 | DRG 389 ==
LOC: ED 12:57 → 3B-SURG 20:00
PROVIDERS: ADMIT Internal Medicine; ATTEND Internal Medicine
DX: K56.7 Ileus, unspecified (principal); K59.39 Other megacolon; E87.1 Hypo-osmolality and hyponatremia; G93.40 Encephalopathy, unspecified; E87.6 Hypokalemia; G80.9 Cerebral palsy, unspecified; I11.0 Hypertensive heart disease with heart failure; I50.9 Heart failure, unspecified; M19.90 Unspecified osteoarthritis, unspecified site; K21.9 Gastro-esophageal reflux disease without esophagitis; I69.322 Dysarthria following cerebral infarction; Z74.01 Bed confinement status
CPT/HCPCS: 36415; 51702; 74019; 74022; 74177; 80048; 80053; 82140; 82962; 83690; 83735; 84100; 85025; 96365; 96375; G0378; J1650; J1885; J2270; J2405; J3246; J3475; J3480; J7030; J7040; Q9967

== ENCOUNTER 2018-09-26 11:47 | Emergency (ER) | payer MEDICARE ==
--- NOTE | 2018-09-26 12:19 | Emergency Department Report ---
ED General Adult HPI - General Chief complaint: Abdominal Pain Stated complaint: ABD PAIN/SWELLING Time Seen by Provider: 09/26/18 12:11 Source: EMS Mode of arrival: Stretcher Limitations: Physical Limitation - History of Present Illness Initial comments: Patient is a 63-year-old male past medical history of cerebral palsy and heart failure who presents with abdominal distention. History obtained by custodial staff. Patient has been having a distended abdomen for the last couple days. Patient has no nausea no vomiting patient complain of abdominal pain. Patient has a history of ileus. His custodial doctor wanted him to come to the emergency department to get a scan of his belly. Symptoms are moderate and nothing makes them better and nothing makes them worse. - Related Data Home Medications Medication Instructions Recorded Confirmed Last Taken AtorvaSTATin [Lipitor] 10 mg PO QHS 02/10/18 06/28/18 Unknown Calcium Carbonate/Vitamin D3 1 each PO BIDWM 02/10/18 06/28/18 Unknown [Calcium 600-Vit D3 400 Tablet] Clopidogrel [Plavix] 75 mg PO QDAY 02/10/18 06/28/18 Unknown Duloxetine HCl [Cymbalta] 60 mg PO HS 02/10/18 06/28/18 Unknown Isosorbide Dinitrate 30 mg PO DAILY 02/10/18 06/28/18 Unknown Linaclotide [Linzess] 290 mcg PO QAM 02/10/18 06/28/18 Unknown Omeprazole 20 mg PO QAM 02/10/18 06/28/18 Unknown Digoxin [Digox] 125 mcg PO DAILY 02/18/18 06/28/18 Unknown Acetaminophen [Acetaminophen TAB] 650 mg PO Q4HR PRN 06/28/18 06/28/18 Unknown Baclofen [Lioresal] 10 mg PO Q8H 06/28/18 06/28/18 Unknown HYDROcodone/ACETAMINOPHEN 1 each PO Q12HR PRN 06/28/18 06/28/18 Unknown [Hydrocodone-Acetamin 5-325 mg] Ketoconazole (Nf) [Ketoconazole 1 applic TP 2XW 06/28/18 06/28/18 Unknown Shampoo (Nf)] Magnesium Hydroxide [Milk of 15 ml PO Q6H PRN 06/28/18 06/28/18 Unknown Magnesia] Metoclopramide HCl [Reglan TAB] 5 mg PO BID 06/28/18 06/28/18 Unknown Sennosides [Natural Laxative] 17.2 mg PO HS 06/28/18 06/28/18 Unknown Tamsulosin HCl [Flomax] 0.8 mg PO HS 06/28/18 06/28/18 Unknown Allergies Allergy/AdvReac Type Severity Reaction Status Date / Time No Known Allergies Allergy Unverified 02/10/18 16:42 ED Review of Systems ROS: Stated complaint: ABD PAIN/SWELLING Other details as noted in HPI Constitutional: denies: chills, fever Eyes: denies: eye pain, eye discharge, vision change ENT: denies: ear pain, throat pain Respiratory: denies: cough, shortness of breath, wheezing Cardiovascular: denies: chest pain, palpitations Endocrine: no symptoms reported Gastrointestinal: abdominal pain. denies: nausea, diarrhea Genitourinary: denies: urgency, dysuria Musculoskeletal: denies: back pain, joint swelling, arthralgia Skin: denies: rash, lesions Neurological: denies: headache, weakness, paresthesias Psychiatric: denies: anxiety, depression Hematological/Lymphatic: denies: easy bleeding, easy bruising ED Past Medical Hx - Past Medical History Hx Hypertension: Yes Hx CVA: Yes Hx Heart Attack/AMI: No Hx Congestive Heart Failure: Yes Hx Diabetes: No Hx Deep Vein Thrombosis: No Hx Pulmonary Embolism: No Hx GERD: Yes Hx Liver Disease: No Hx Renal Disease: No Hx Sickle Cell Disease: No Hx Arthritis: Yes Hx Headaches / Migraines: No Hx Seizures: No Hx Kidney Stones: No Hx Psychiatric Treatment: No Hx Asthma: No Hx COPD: No Hx Tuberculosis: No Hx Dementia: No Hx HIV: (unknown) - Surgical History Hx Coronary Stent: No Hx Open Heart Surgery: No Hx Pacemaker: No Hx Internal Defibrillator: No Hx Cholecystectomy: No Hx Appendectomy: No Hx Breast Surgery: No Additional Surgical History: unknown - Social History Smoking Status: Never Smoker - Medications Home Medications: Home Medications Medication Instructions Recorded Confirmed Last Taken Type AtorvaSTATin [Lipitor] 10 mg PO QHS 02/10/18 06/28/18 Unknown History Calcium Carbonate/Vitamin D3 1 each PO BIDWM 02/10/18 06/28/18 Unknown History [Calcium 600-Vit D3 400 Tablet] Clopidogrel [Plavix] 75 mg PO QDAY 02/10/18 06/28/18 Unknown History Duloxetine HCl [Cymbalta] 60 mg PO HS 02/10/18 06/28/18 Unknown History Isosorbide Dinitrate 30 mg PO DAILY 02/10/18 06/28/18 Unknown History Linaclotide [Linzess] 290 mcg PO QAM 02/10/18 06/28/18 Unknown History Omeprazole 20 mg PO QAM 02/10/18 06/28/18 Unknown History Digoxin [Digox] 125 mcg PO DAILY 02/18/18 06/28/18 Unknown History Acetaminophen [Acetaminophen TAB] 650 mg PO Q4HR PRN 06/28/18 06/28/18 Unknown History Baclofen [Lioresal] 10 mg PO Q8H 06/28/18 06/28/18 Unknown History HYDROcodone/ACETAMINOPHEN 1 each PO Q12HR PRN 06/28/18 06/28/18 Unknown History [Hydrocodone-Acetamin 5-325 mg] Ketoconazole (Nf) [Ketoconazole 1 applic TP 2XW 06/28/18 06/28/18 Unknown History Shampoo (Nf)] Magnesium Hydroxide [Milk of 15 ml PO Q6H PRN 06/28/18 06/28/18 Unknown History Magnesia] Metoclopramide HCl [Reglan TAB] 5 mg PO BID 06/28/18 06/28/18 Unknown History Sennosides [Natural Laxative] 17.2 mg PO HS 06/28/18 06/28/18 Unknown History Tamsulosin HCl [Flomax] 0.8 mg PO HS 06/28/18 06/28/18 Unknown History ED Physical Exam - General Limitations: Physical Limitation General appearance: alert, in no apparent distress - Head Head exam: Present: atraumatic, normocephalic - Eye Eye exam: Present: normal appearance - ENT ENT exam: Present: mucous membranes moist - Neck Neck exam: Present: normal inspection - Respiratory Respiratory exam: Present: normal lung sounds bilaterally. Absent: respiratory distress - Cardiovascular Cardiovascular Exam: Present: regular rate, normal rhythm. Absent: systolic murmur, diastolic murmur, rubs, gallop - GI/Abdominal GI/Abdominal exam: Present: soft, normal bowel sounds - Rectal Rectal exam: Present: deferred - Extremities Exam Extremities exam: Present: other (contractures) - Back Exam Back exam: Present: normal inspection - Neurological Exam Neurological exam: Present: alert - Psychiatric Psychiatric exam: Present: normal affect, normal mood - Skin Skin exam: Present: warm, dry, intact, normal color. Absent: rash ED Course Vital Signs 09/26/18 12:07 Temperature 97.6 F Pulse Rate 85 Respiratory 18 Rate Blood Pressure 115/75 [Right] O2 Sat by Pulse 97 Oximetry ED Medical Decision Making - Lab Data Result diagrams: 09/26/18 12:28 09/26/18 12:28 Lab Results 09/26/18 09/26/18 09/26/18 Range/Units 12:28 12:28 12:28 WBC 4.6 (4.5-11.0) K/mm3 RBC 4.01 (3.65-5.03) M/mm3 Hgb 12.6 (11.8-15.2) gm/dl Hct 37.6 (35.5-45.6) % MCV 94 (84-94) fl MCH 31 (28-32) pg MCHC 34 (32-34) % RDW 13.9 (13.2-15.2) % Plt Count 152 (140-440) K/mm3 Lymph % (Auto) 16.7 (13.4-35.0) % [place] % (Auto) 10.3 H (0.0-7.3) % Eos % (Auto) 2.0 (0.0-4.3) % Baso % (Auto) 0.4 (0.0-1.8) % Lymph # 0.8 L (1.2-5.4) K/mm3 Sutton # 0.5 (0.0-0.8) K/mm3 Eos # 0.1 (0.0-0.4) K/mm3 Baso # 0.0 (0.0-0.1) K/mm3 Seg Neutrophils % 70.6 H (40.0-70.0) % Seg Neutrophils # 3.2 (1.8-7.7) K/mm3 Sodium 135 L (137-145) mmol/L Potassium 3.2 L (3.6-5.0) mmol/L Chloride 99.9 (98-107) mmol/L Carbon Dioxide 26 (22-30) mmol/L Anion Gap 12 mmol/L BUN 6 L (9-20) mg/dL Creatinine 0.3 L (0.8-1.5) mg/dL Estimated GFR > 60 ml/min BUN/Creatinine Ratio 20 % Glucose 93 (75-100) mg/dL Calcium 8.9 (8.4-10.2) mg/dL Total Bilirubin 0.40 (0.1-1.2) mg/dL AST 11 (5-40) units/L ALT 7 (7-56) units/L Alkaline Phosphatase 60 (35-129) units/L Albumin 3.5 L (3.9-5) g/dL Lipase 18 (13-60) units/L - Radiology Data Radiology results: report reviewed, image reviewed CT abd: Shows distension and moderate fecal impaction. - Medical Decision Making Chief medical diagnosis: Ileus Differential diagnosis: Small bowel obstruction, metabolic abnormality I will get CBC BMP and I'll get a CT scan with contrast CT scan shows constipation I will send pt back home to the custodial. Critical care attestation.: If time is entered above; I have spent that time in minutes in the direct care of this critically ill patient, excluding procedure time. ED Disposition Clinical Impression: Abdominal distension Constipation Qualifiers: Constipation type: unspecified constipation type Qualified Code(s): K59.00 - Constipation, unspecified Cerebral palsy Qualifiers: Cerebral palsy type: unspecified type Qualified Code(s): G80.9 - Cerebral palsy, unspecified Disposition: DC-01 TO HOME OR SELFCARE Is pt being admited?: No Does the pt Need Aspirin: No Condition: Stable Instructions: Constipation (ED) Referrals: TYSON BLANCAS MD [Primary Care Provider] - 3-5 Days
[2018-09-26 12:51] LABS: Basophils % (Auto) 0.4 % (0.0-1.8); Eosinophils # (Auto) 0.1 K/mm3 (0.0-0.4); Hematocrit 37.6 % (35.5-45.6); Hemoglobin 12.6 gm/dl (11.8-15.2); Lymphocytes # (Auto) 0.8 K/mm3 (1.2-5.4); Lymphocytes % (Auto) 16.7 % (13.4-35.0); Mean Corpuscular HGB Conc 34 % (32-34); Mean Corpuscular Volume 94 fl (84-94); Monocytes # (Auto) 0.5 K/mm3 (0.0-0.8); Monocytes % (Auto) 10.3 % (0.0-7.3); Platelet Count 152 K/mm3 (140-440); Red Blood Count 4.01 M/mm3 (3.65-5.03); Red Cell Distribution Width 13.9 % (13.2-15.2)
[2018-09-26 13:10] LABS: Alanine Aminotransferase 7 units/L (7-56); Albumin 3.5 g/dL (3.9-5); BUN/Creatinine Ratio 20; Blood Urea Nitrogen 6 mg/dL (9-20); Calcium 8.9 mg/dL (8.4-10.2); Hemolysis Index 5
--- NOTE | 2018-09-26 15:21 | Cat Scan Report ---
CT ABDOMEN AND PELVIS WITH CONTRAST HISTORY: abd distension. Acute generalized abdominal pain for the past month COMPARISON: CT abdomen/pelvis from 06/28/2018. TECHNIQUE: CT images of the abdomen and pelvis were obtained following administration of intravenous contrast. All CT scans at this location are performed using CT dose reduction for ALARA by means of automated exposure control. CONTRAST: 100 ml of intravenous contrast administered. FINDINGS: Lungs/bones: Lung bases are poorly seen with suggestion of emphysema. There are degenerative changes within the spine and pelvis with nothing acute identified. Abdomen/pelvis: A portion of the upper abdomen was excluded from view to include portions of the ashish er, stomach, and bowel. There is persistent gross gaseous distention of the colon with a moderate amount of stool in the rect osigmoid region and upstream gaseous distention. Mild distention extends into the distal small bowel as well. No acute inflammatory change identified. The visualized liver, gallbladder, spleen, pancreas, adrenals, and proximal GI tract appear unremarka ble. The left kidney is normal. There are simple cysts in the right kidney. Prostate is enlarged and indents the bladder base. The bladder shows gross irregular wall thickening. No pelvic free fluid identified. IMPRESSION: 1. Probable evolving fecal impaction with gross gaseous distention of the entire colon. 2. Limited exam with exclusion a portion of the upper abdomen/lung bases. 3. Gross circumferential wall thickening involving the urinary bladder not seen on the previous exam although the bladder was collapsed with a Gomez catheter in place at that time. Correlate for potenti al infectious/inflammatory process. Signer Name: Ar Juarez MD Signed: 09/26/2018 3:17 PM Workstation Name: [id number]
[2018-09-26] MEDS ORDERED: CITRATE OF MAGNESIA PO ONE (15:36)
[2018-09-26] MEDS ORDERED: MOTRIN PO ONE (16:23)
--- NOTE | 2018-09-26 16:27 | XRay Report ---
CHEST 1 VIEW INDICATION: abd pain. Acute generalized abdominal pain COMPARISON: Abdominal series from 06/29/2018 FINDINGS: Support devices: None. Heart: Within normal limits. Lungs/Pleura: A portion of the left lung base has been excluded from view. There is patchy airspace d isease in the medial right lung base with otherwise clear lungs. Additional findings: None. IMPRESSION: 1. Limited exam as above with patchy airspace opacity in the medial right lung base. Signer Name: Ar Juarez MD Signed: 09/26/2018 4:22 PM Workstation Name: [id number]
[2018-09-26 17:06] LABS: Bacteria,Urine 1+ /HPF (Negative); Bilirubin,Urine NEG (Negative); Blood,Urine LG (Negative); Color,Urine Yellow (Yellow); Protein,Urine <15 mg/dL mg/dL (Negative); Urobilinogen,Urine < 2.0 mg/dL (<2.0)
[2018-09-26 17:08] LABS: RBC,Urine > 182.0 /HPF (0.0-6.0)
[2018-09-26 17:20] VITALS: BP 126/86
== END 2018-09-26 19:00 | disposition home or self-care (01) ==
LOC: ED 11:47
DX: K59.00 Constipation, unspecified (principal); R14.0 Abdominal distension (gaseous); G80.9 Cerebral palsy, unspecified; I11.0 Hypertensive heart disease with heart failure; I50.9 Heart failure, unspecified; K21.0 Gastro-esophageal reflux disease with esophagitis; M19.90 Unspecified osteoarthritis, unspecified site; Z79.899 Other long term (current) drug therapy; Z86.73 Personal history of transient ischemic attack (TIA), and cerebral infarction without residual deficits
CPT/HCPCS: 36415; 71045; 74177; 80053; 81001; 83690; 85025; 99285; Q9967

== ENCOUNTER 2018-10-01 12:57 | Inpatient (IN) | payer MEDICARE ==
[2018-10-01] MEDS ORDERED: TORADOL IV ONE (13:44)
[2018-10-01 14:02] LABS: Basophils % (Auto) 0.2 % (0.0-1.8); Hematocrit 37.9 % (35.5-45.6); Hemoglobin 12.5 gm/dl (11.8-15.2); Lymphocytes # (Auto) 0.4 K/mm3 (1.2-5.4); Lymphocytes % (Auto) 9.2 % (13.4-35.0); Mean Corpuscular HGB Conc 33 % (32-34); Mean Corpuscular Volume 93 fl (84-94); Monocytes # (Auto) 0.2 K/mm3 (0.0-0.8); Monocytes % (Auto) 4.9 % (0.0-7.3); Platelet Count 165 K/mm3 (140-440); Red Blood Count 4.08 M/mm3 (3.65-5.03); Red Cell Distribution Width 13.9 % (13.2-15.2)
[2018-10-01 14:32] LABS: Alanine Aminotransferase 8 units/L (7-56); Albumin 3.8 g/dL (3.9-5); BUN/Creatinine Ratio 16; Blood Urea Nitrogen 8 mg/dL (9-20); Hemolysis Index 7
[2018-10-01] MEDS ORDERED: DILAUDID IV ONE ×2 (14:57→17:13)
[2018-10-01] MEDS ORDERED: ZOFRAN IV ONE (14:57)
--- NOTE | 2018-10-01 15:21 | XRay Report ---
ABDOMINAL SERIES HISTORY: Abdominal distention, pain, history of fecal impaction. FINDINGS: Single view of the chest demonstrates borderline to mild cardiomegaly and bibasilar atelectatic lazaro es. Supine and upright views of the abdomen demonstrate impressive gaseous distention of the colon. No ob vious dilated small bowel loops. There is a mild degree of stool in the rectum. No free air is identi fied. IMPRESSION: Diffuse gaseous distention of the colon. This may represent an ileus. There is a mild degree of stool in the rectum. Fecal impaction could be considered. Mild cardiomegaly. Bibasilar atelectatic changes. Signer Name: Jerry Lara Jr, MD Signed: 10/01/2018 3:17 PM Workstation Name: [id number]
--- NOTE | 2018-10-01 17:02 | Emergency Department Report ---
ED Abdominal Pain HPI - General Chief Complaint: Urogenital-Male Stated Complaint: GENERAL WEAKNESS Time Seen by Provider: 10/01/18 13:35 Source: family, EMS Mode of arrival: Stretcher Limitations: Altered Mental Status, Physical Limitation - History of Present Illness Initial Comments: 63 year old male with a past medical history cerebral palsy, previous day, CHF, GERD, hypertension, and recurrent constipation presents from the long-term to the hospital complains of continued constipation, abdominal distention, in pain. Patient was seen here on September 29 for the same symptoms. Received a CT abdomen and pelvis showing C-spine traction and colonic distention. Enema was ordered and patient has been receiving MiraLAX at the long-term without improvement. Patient now presents with increasing abdominal distention and pain. No reports of nausea or vomiting. Severity scale (0 -10): 10 - Related Data Home Medications Medication Instructions Recorded Confirmed Last Taken AtorvaSTATin [Lipitor] 10 mg PO QHS 02/10/18 06/28/18 Unknown Calcium Carbonate/Vitamin D3 1 each PO BIDWM 02/10/18 06/28/18 Unknown [Calcium 600-Vit D3 400 Tablet] Clopidogrel [Plavix] 75 mg PO QDAY 02/10/18 06/28/18 Unknown Duloxetine HCl [Cymbalta] 60 mg PO HS 02/10/18 06/28/18 Unknown Isosorbide Dinitrate 30 mg PO DAILY 02/10/18 06/28/18 Unknown Linaclotide [Linzess] 290 mcg PO QAM 02/10/18 06/28/18 Unknown Omeprazole 20 mg PO QAM 02/10/18 06/28/18 Unknown Digoxin [Digox] 125 mcg PO DAILY 02/18/18 06/28/18 Unknown Acetaminophen [Acetaminophen TAB] 650 mg PO Q4HR PRN 06/28/18 06/28/18 Unknown Baclofen [Lioresal] 10 mg PO Q8H 06/28/18 06/28/18 Unknown HYDROcodone/ACETAMINOPHEN 1 each PO Q12HR PRN 06/28/18 06/28/18 Unknown [Hydrocodone-Acetamin 5-325 mg] Ketoconazole (Nf) [Ketoconazole 1 applic TP 2XW 06/28/18 06/28/18 Unknown Shampoo (Nf)] Magnesium Hydroxide [Milk of 15 ml PO Q6H PRN 06/28/18 06/28/18 Unknown Magnesia] Metoclopramide HCl [Reglan TAB] 5 mg PO BID 06/28/18 06/28/18 Unknown Sennosides [Natural Laxative] 17.2 mg PO HS 06/28/18 06/28/18 Unknown Tamsulosin HCl [Flomax] 0.8 mg PO HS 06/28/18 06/28/18 Unknown Previous Rx's Medication Instructions Recorded Last Taken Type Sulfamethoxazole/Trimethoprim 1 each PO BID #14 tablet 09/26/18 Unknown Rx [Bactrim DS TAB] Allergies Allergy/AdvReac Type Severity Reaction Status Date / Time No Known Allergies Allergy Verified 10/01/18 13:25 ED Review of Systems ROS: Stated complaint: GENERAL WEAKNESS Other details as noted in HPI Comment: All other systems reviewed and negative ED Past Medical Hx - Past Medical History Hx Hypertension: Yes Hx CVA: Yes Hx Heart Attack/AMI: No Hx Congestive Heart Failure: Yes Hx Diabetes: No Hx Deep Vein Thrombosis: No Hx Pulmonary Embolism: No Hx GERD: Yes Hx Liver Disease: No Hx Renal Disease: No Hx Sickle Cell Disease: No Hx Arthritis: Yes Hx Headaches / Migraines: No Hx Seizures: No Hx Kidney Stones: No Hx Psychiatric Treatment: No Hx Asthma: No Hx COPD: No Hx Tuberculosis: No Hx Dementia: No Hx HIV: (unknown) - Surgical History Hx Coronary Stent: No Hx Open Heart Surgery: No Hx Pacemaker: No Hx Internal Defibrillator: No Hx Cholecystectomy: No Hx Appendectomy: No Hx Breast Surgery: No Additional Surgical History: unknown - Social History Smoking Status: Never Smoker Substance Use Type: None - Medications Home Medications: Home Medications Medication Instructions Recorded Confirmed Last Taken Type AtorvaSTATin [Lipitor] 10 mg PO QHS 02/10/18 06/28/18 Unknown History Calcium Carbonate/Vitamin D3 1 each PO BIDWM 02/10/18 06/28/18 Unknown History [Calcium 600-Vit D3 400 Tablet] Clopidogrel [Plavix] 75 mg PO QDAY 02/10/18 06/28/18 Unknown History Duloxetine HCl [Cymbalta] 60 mg PO HS 02/10/18 06/28/18 Unknown History Isosorbide Dinitrate 30 mg PO DAILY 02/10/18 06/28/18 Unknown History Linaclotide [Linzess] 290 mcg PO QAM 02/10/18 06/28/18 Unknown History Omeprazole 20 mg PO QAM 02/10/18 06/28/18 Unknown History Digoxin [Digox] 125 mcg PO DAILY 02/18/18 06/28/18 Unknown History Acetaminophen [Acetaminophen TAB] 650 mg PO Q4HR PRN 06/28/18 06/28/18 Unknown History Baclofen [Lioresal] 10 mg PO Q8H 06/28/18 06/28/18 Unknown History HYDROcodone/ACETAMINOPHEN 1 each PO Q12HR PRN 06/28/18 06/28/18 Unknown History [Hydrocodone-Acetamin 5-325 mg] Ketoconazole (Nf) [Ketoconazole 1 applic TP 2XW 06/28/18 06/28/18 Unknown History Shampoo (Nf)] Magnesium Hydroxide [Milk of 15 ml PO Q6H PRN 06/28/18 06/28/18 Unknown History Magnesia] Metoclopramide HCl [Reglan TAB] 5 mg PO BID 06/28/18 06/28/18 Unknown History Sennosides [Natural Laxative] 17.2 mg PO HS 06/28/18 06/28/18 Unknown History Tamsulosin HCl [Flomax] 0.8 mg PO HS 06/28/18 06/28/18 Unknown History Sulfamethoxazole/Trimethoprim 1 each PO BID #14 tablet 09/26/18 Unknown Rx [Bactrim DS TAB] ED Physical Exam - General Limitations: Altered Mental Status, Physical Limitation - Other Other exam information: General: moderate discomfort due to pain Head exam: Atraumatic, normocephalic Eyes exam: Normal appearance ENT: Moist mucous membrane Neck exam: Normal inspection Respiratory exam:b/l rhonchi Cardiovascular: Normal rate and rhythm, normal heart sounds Abdomen: firm, distended, generalized tenderness Extremity: Full range of motion normal inspection no deformity Back: Normal Inspection, full range of motion, no tenderness Neurologic: Alert, difficult to understand each (chronic), Functional paraplegia Psychiatric: normal affect, normal mood Skin: Warm, dry, intact ED Course Vital Signs 10/01/18 10/01/18 10/01/18 13:55 14:56 15:01 Temperature 98.1 F Pulse Rate 96 H 107 H Respiratory 16 16 18 Rate Blood Pressure 124/80 [Left] O2 Sat by Pulse 96 97 97 Oximetry 10/01/18 10/01/18 10/01/18 15:15 15:31 15:39 Temperature Pulse Rate 98 H 106 H Respiratory 16 17 20 Rate Blood Pressure [Left] O2 Sat by Pulse 94 Oximetry - Consultations Consultation #1: 10/01/18 17:55 case d/w Dr Gabe Li with GI, rec tube and enema ED Medical Decision Making - Lab Data Result diagrams: 10/01/18 13:51 10/01/18 13:51 Lab Results 10/01/18 10/01/18 10/01/18 Range/Units 13:51 13:51 13:51 WBC 4.8 (4.5-11.0) K/mm3 RBC 4.08 (3.65-5.03) M/mm3 Hgb 12.5 (11.8-15.2) gm/dl Hct 37.9 (35.5-45.6) % MCV 93 (84-94) fl MCH 31 (28-32) pg MCHC 33 (32-34) % RDW 13.9 (13.2-15.2) % Plt Count 165 (140-440) K/mm3 Lymph % (Auto) 9.2 L (13.4-35.0) % [place] % (Auto) 4.9 (0.0-7.3) % Eos % (Auto) 0.0 (0.0-4.3) % Baso % (Auto) 0.2 (0.0-1.8) % Lymph # 0.4 L (1.2-5.4) K/mm3 [place] # 0.2 (0.0-0.8) K/mm3 Eos # 0.0 (0.0-0.4) K/mm3 Baso # 0.0 (0.0-0.1) K/mm3 Seg Neutrophils % 85.7 H (40.0-70.0) % Seg Neutrophils # 4.1 (1.8-7.7) K/mm3 Sodium 134 L (137-145) mmol/L Potassium 2.7 L* (3.6-5.0) mmol/L Chloride 97.6 L (98-107) mmol/L Carbon Dioxide 24 (22-30) mmol/L Anion Gap 15 mmol/L BUN 8 L (9-20) mg/dL Creatinine 0.5 L (0.8-1.5) mg/dL Estimated GFR > 60 ml/min BUN/Creatinine Ratio 16 % Glucose 117 H (75-100) mg/dL Calcium 9.0 (8.4-10.2) mg/dL Magnesium 2.20 (1.7-2.3) mg/dL Total Bilirubin 0.40 (0.1-1.2) mg/dL AST 12 (5-40) units/L ALT 8 (7-56) units/L Alkaline Phosphatase 60 (35-129) units/L Total Protein 7.1 (6.3-8.2) g/dL Albumin 3.8 L (3.9-5) g/dL Albumin/Globulin Ratio 1.2 % - Radiology Data Radiology results: report reviewed Abdominal series x-ray: A diffuse gaseous distention of the colon. These may represent an ileus. His is a mild degree of stool in the rectum. Fecal impaction could be considered. Mild cardiomegaly. Bibasilar atelectasis changes ct abd/pelvis non contrast: Impression worsening colon distention. Cecum measures up to 12 cm in diameter. This size is concerning for spontaneous perforation. Only a small amount of fluid in fecal material in colon. Colitis is has worsened since prior study. Most compatible with severe colonic ileus - Medical Decision Making Patient has significant colonic dilatation greater than 10 cm at risk for perforation. Findings suggestive of ileus. Case discussed with GI. Will admit patient to the hospital and provide enema a rectal tube as suggested by GI. Patient has definite discomfort that was not relieved by Toradol and therefore did receive Dilaudid 0.5 mg IV 2. 2 separate doses of potassium 20 mg IV ordered for hypokalemia. - Differential Diagnosis obstruction, ileus, fecal impaction, perforation Critical Care Time: No Critical care attestation.: If time is entered above; I have spent that time in minutes in the direct care of this critically ill patient, excluding procedure time. ED Disposition Clinical Impression: Fecal impaction, Colon distention, Hypokalemia, Bedbound, Cerebral palsy Disposition: OP ADMIT IP TO THIS HOSP Is pt being admited?: Yes Condition: Stable Time of Disposition: 17:54 (Dr Mora/hosp)
--- NOTE | 2018-10-01 17:09 | Cat Scan Report ---
. CT scan of the abdomen and pelvis with contrast INDICATION: distended abd. TECHNIQUE: All CT scans at this location are performed using the following dose modulation technique: Automated exposure control. Helical slices were obtained through the abdomen and pelvis. No contrast is adminis tered. COMPARISON: CT scan dated 09/26/2018 FINDINGS: Abdomen: Heart is enlarged. There is airspace disease in both lung bases likely representing ectasis. The liver, spleen, pancreas, adrenal glands, and kidneys are unchanged from the prior study. There i s further distention of the colon when compared to the prior exam. Small amount of fluid and feculent material in the rectum. The entire colon is distended with gas. Cecum measures 12 cm in diameter. Appearance is characteristic of severe colonic ileus. Pelvis: Phleboliths are noted. There is a Gomez catheter in the urinary bladder. There is no free air. On review of bone windows, no acute osseous abnormalities are seen. IMPRESSION: 1. There is worsening distention of the colon. Today's examination the cecum measures up to 12 cm in diameter. This size there is concern for spontaneous perforation. There is only a small amount of flu id and fecal material in the colon. Colon distention has worsened since prior study. Small bowel is n ormal in caliber. There is most compatible with severe colonic ileus. Signer Name: Tate Reyes MD Signed: 10/01/2018 5:05 PM Workstation Name: [id number]
[2018-10-01] MEDS: KCL 10MEQ/100ML 10 MEQ/100 ML BAG IV SCH ×3 (17:14→22:40)
[2018-10-01] MEDS ORDERED: CITRATE OF MAGNESIA PO ONE (17:47)
[2018-10-01] MEDS ORDERED: KCL 10MEQ/100ML 10 MEQ/100 ML BAG IV SCH (18:00)
--- NOTE | 2018-10-01 19:12 | History and Physical Report ---
History of Present Illness Chief complaint: confused History of present illness: 63 YO Male [facility] Home Facility Resident with CP, GERD, CHF, HTN, CVA, OA, Recurrent Constipation present to ED for evaluation. Pt is confused and unable to provide history. Pt history provided by [facility] staff and medical record. As per staff, the patient was found to have abdominal distention today as well as going several days without bowel movement. EMS notified, and upon arrival the patient was found to be in distress and transported to [facility]. Pt seen and evaluated in ED and found to have Abdominal Distention secondary to fecal impaction, megacolon with dilated bowel up to 12cm, and Bowel obstruction. as well as Hypokalemia. GI consulted in ED and patient treated with placement of rectal tube. Pt admitted to [facility] unit and treated with bowel rest and supportive care. Prior admission on 06/28/18 reviewed. All listed medication reconciled at time of admission. No further history obtainable. Past History Past Medical History: arthritis, GERD, heart failure, hypertension, stroke, other (Cerebral Palsy) Past Surgical History: No surgical history, Other (Reviewed) Social history: . denies: smoking, alcohol abuse, prescription drug abuse Family history: hypertension Medications and Allergies Allergies Allergy/AdvReac Type Severity Reaction Status Date / Time No Known Allergies Allergy Verified 10/01/18 13:25 Home Medications Medication Instructions Recorded Confirmed Last Taken Type AtorvaSTATin [Lipitor] 10 mg PO QHS 02/10/18 10/02/18 Unknown History Calcium Carbonate/Vitamin D3 1 each PO BIDWM 02/10/18 10/02/18 Unknown History [Calcium 600-Vit D3 400 Tablet] Clopidogrel [Plavix] 75 mg PO QDAY 02/10/18 10/02/18 Unknown History Duloxetine HCl [Cymbalta] 60 mg PO HS 02/10/18 10/02/18 Unknown History Isosorbide Dinitrate 30 mg PO DAILY 02/10/18 10/02/18 Unknown History Linaclotide [Linzess] 290 mcg PO QAM 02/10/18 10/02/18 Unknown History Omeprazole 20 mg PO QAM 02/10/18 10/02/18 Unknown History Digoxin [Digox] 125 mcg PO DAILY 02/18/18 10/02/18 Unknown History Acetaminophen [Acetaminophen TAB] 650 mg PO Q4HR PRN 06/28/18 10/02/18 Unknown History Baclofen [Lioresal] 10 mg PO Q8H 06/28/18 10/02/18 Unknown History HYDROcodone/ACETAMINOPHEN 1 each PO Q12HR PRN 06/28/18 10/02/18 Unknown History [Hydrocodone-Acetamin 5-325 mg] Ketoconazole (Nf) [Ketoconazole 1 applic TP 2XW 06/28/18 10/02/18 Unknown History Shampoo (Nf)] Magnesium Hydroxide [Milk of 15 ml PO Q6H PRN 06/28/18 10/02/18 Unknown History Magnesia] Metoclopramide HCl [Reglan TAB] 5 mg PO BID 06/28/18 10/02/18 Unknown History Sennosides [Natural Laxative] 17.2 mg PO HS 06/28/18 10/02/18 Unknown History Tamsulosin HCl [Flomax] 0.8 mg PO HS 06/28/18 10/02/18 Unknown History Sulfamethoxazole/Trimethoprim 1 each PO BID #14 tablet 09/26/18 10/02/18 Unknown Rx [Bactrim DS TAB] Active Meds: Active Medications Potassium Chloride (Kcl 10meq/100ml) 10 meq in 100 mls @ 100 mls/hr IV Q1H PRINCESS Stop: 10/01/18 19:59 Review of Systems ROS unobtainable: due to mental status Exam - Constitutional Vitals: Temp Pulse Resp BP Pulse Ox 98.1 F 106 H 20 124/80 94 10/01/18 13:55 10/01/18 15:31 10/01/18 15:39 10/01/18 13:55 10/01/18 15:31 General appearance: Present: mild distress - EENT Eyes: Present: PERRL ENT: hearing intact, clear oral mucosa - Neck Neck: Present: supple, normal ROM - Respiratory Respiratory: bilateral: diminished - Cardiovascular Heart Sounds: Present: S1 & S2. Absent: rub, click - Extremities Extremities: pulses symmetrical, No edema Peripheral Pulses: within normal limits - Abdominal General gastrointestinal: Present: soft, non-tender, distended, normal bowel sounds. Absent: hepatomegaly, splenomegaly Male genitourinary: Present: normal - Integumentary Integumentary: Present: clear, warm, dry - Musculoskeletal Musculoskeletal: gait normal, strength equal bilaterally - Psychiatric Psychiatric: no appropriate mood/affect, no intact judgment & insight, no memory intact - Neurologic Neurologic: no gait normal Results - Labs CBC & Chem 7: 10/01/18 13:51 10/01/18 13:51 Labs: Abnormal lab results 10/01/18 10/01/18 Range/Units 13:51 13:51 Lymph % (Auto) 9.2 L (13.4-35.0) % Lymph # 0.4 L (1.2-5.4) K/mm3 Seg Neutrophils % 85.7 H (40.0-70.0) % Sodium 134 L (137-145) mmol/L Potassium 2.7 L* (3.6-5.0) mmol/L Chloride 97.6 L (98-107) mmol/L BUN 8 L (9-20) mg/dL Creatinine 0.5 L (0.8-1.5) mg/dL Glucose 117 H (75-100) mg/dL Albumin 3.8 L (3.9-5) g/dL Assessment and Plan - Patient Problems (1) Bowel obstruction Current Visit: Yes Status: Acute Qualifiers: Intestinal obstruction type: other intestinal impaction Qualified Code(s): K56.49 - Other impaction of intestine; K56.4 - Other impaction of intestine Plan to address problem: GI consulted , supportive care, bowel rest, rectal tube placed for decompression in ED, serial abdominal exam. (2) Cerebral palsy Current Visit: Yes Status: Acute Qualifiers: Cerebral palsy type: unspecified type Plan to address problem: Chronic, supportive care, continue current care. (3) Fecal impaction Current Visit: Yes Status: Acute Plan to address problem: GI consulted, enema as per GI request, rectal tube placement, supportive care. (4) CHF (congestive heart failure) Current Visit: No Status: Acute Qualifiers: Heart failure type: diastolic Heart failure chronicity: acute on chronic Qualified Code(s): I50.33 - Acute on chronic diastolic (congestive) heart failure Plan to address problem: strict I/O, daily weight, monitor uop q shift, afterload reduction, continue prehospital medication. (5) DVT prophylaxis Current Visit: Yes Status: Acute Plan to address problem: SCD to BLE while in bed,
[2018-10-01] MEDS ORDERED: SODIUM CHLORIDE FLUSH SYRINGE 10 ML IV PRN (19:14)
[2018-10-01] MEDS ORDERED: MORPHINE IV PRN (19:14)
[2018-10-01] MEDS: NACL 0.9% 1000 ML 1,000 ML IV SCH (21:42)
[2018-10-01] MEDS: SODIUM CHLORIDE FLUSH SYRINGE 10 ML IV SCH (21:42)
[2018-10-02] MEDS: KCL 10MEQ/100ML 10 MEQ/100 ML BAG IV SCH (00:19)
--- NOTE | 2018-10-02 09:18 | Progress Note ---
Assessment and Plan Assessment and plan: 63 YO Male [facility] Resident with CP, GERD, CHF, HTN, CVA, OA, Recurrent Constipation present to ED for evaluation. Pt is confused and unable to provide history. Pt history provided by SNF staff and medical record. As per staff, the patient was found to have abdominal distention today as well as going several days without bowel movement. EMS notified, and upon arrival the patient was found to be in distress and transported to [facility]. Pt seen and evaluated in ED and found to have Abdominal Distention secondary to fecal impaction, megacolon with dilated bowel up to 12cm, and Bowel obstruction. as well as Hypokalemia. GI consulted in ED and patient treated with placement of rectal tube. Pt admitted to [facility] unit and treated with bowel rest and supportive care. Prior admission on 06/28/18 reviewed. Bowel Obstruction Secondary to Fecal Impaction Acute on Chronic Diastolic Heart failure Hx of Recurrent Constipation Cerebral Palsy CVA GERD Hypokalemia Plan * Continue supportive care * Await for family to discuss recurrent impaction * Monitor FMS * GI following * Recheck BMP for Hypokalemia Correction * DVT/GI . History Interval history: Patient is examined today no active distress stable. Hospitalist Physical - Physical exam Narrative exam: VITAL SIGNS: Reviewed. GENERAL: The patient appeared normally developed, Vital signs as documented. HEAD: No signs of head trauma. EYES: Pupils are equal. Extraocular motions intact. EARS: Hearing grossly intact. MOUTH: Oropharynx is normal. NECK: No adenopathy, no JVD. CHEST: Chest with clear breath sounds bilaterally. No wheezes, rales, or rhonchi. CARDIAC: Regular rate and rhythm. S1 and S2, without murmurs, gallops, or rubs. VASCULAR: No Edema. Peripheral pulses normal and equal in all extremities. ABDOMEN: Soft, non tender and non distended. No rebound or guarding, and no masses palpated. Bowel Sounds normal. MUSCULOSKELETAL: Extremities without clubbing, cyanosis or edema, atrophy. NEUROLOGIC EXAM: AWAKE, Unable to examine full neuro exam due to mental status. PSYCHIATRIC: Mood normal. SKIN: see detail exam as documented in skin assessment - Constitutional Vitals: Temp Pulse Resp BP Pulse Ox 98.0 F 104 H 18 106/67 95 10/02/18 08:21 10/02/18 08:21 10/02/18 08:21 10/02/18 08:21 10/02/18 08:53 General appearance: Present: mild distress Results - Labs CBC & Chem 7: 10/01/18 13:51 10/02/18 09:57 Labs: Laboratory Last Values WBC 4.8 K/mm3 (4.5-11.0) 10/01/18 13:51 RBC 4.08 M/mm3 (3.65-5.03) 10/01/18 13:51 Hgb 12.5 gm/dl (11.8-15.2) 10/01/18 13:51 Hct 37.9 % (35.5-45.6) 10/01/18 13:51 MCV 93 fl (84-94) 10/01/18 13:51 MCH 31 pg (28-32) 10/01/18 13:51 MCHC 33 % (32-34) 10/01/18 13:51 RDW 13.9 % (13.2-15.2) 10/01/18 13:51 Plt Count 165 K/mm3 (140-440) 10/01/18 13:51 Lymph % (Auto) 9.2 % (13.4-35.0) L 10/01/18 13:51 Coal % (Auto) 4.9 % (0.0-7.3) 10/01/18 13:51 Eos % (Auto) 0.0 % (0.0-4.3) 10/01/18 13:51 Baso % (Auto) 0.2 % (0.0-1.8) 10/01/18 13:51 Lymph # 0.4 K/mm3 (1.2-5.4) L 10/01/18 13:51 Coal # 0.2 K/mm3 (0.0-0.8) 10/01/18 13:51 Eos # 0.0 K/mm3 (0.0-0.4) 10/01/18 13:51 Baso # 0.0 K/mm3 (0.0-0.1) 10/01/18 13:51 Seg Neutrophils % 85.7 % (40.0-70.0) H 10/01/18 13:51 Seg Neutrophils # 4.1 K/mm3 (1.8-7.7) 10/01/18 13:51 Sodium 134 mmol/L (137-145) L 10/01/18 13:51 Potassium 2.7 mmol/L (3.6-5.0) L* 10/01/18 13:51 Chloride 97.6 mmol/L (98-107) L 10/01/18 13:51 Carbon Dioxide 24 mmol/L (22-30) 10/01/18 13:51 15 mmol/L 10/01/18 13:51 BUN 8 mg/dL (9-20) L 10/01/18 13:51 0.5 mg/dL (0.8-1.5) L 10/01/18 13:51 Estimated GFR > 60 ml/min 10/01/18 13:51 16 % 10/01/18 13:51 Glucose 117 mg/dL (75-100) H 10/01/18 13:51 Lactic Acid 0.60 mmol/L (0.7-2.0) L 10/02/18 05:02 Calcium 9.0 mg/dL (8.4-10.2) 10/01/18 13:51 Magnesium 2.20 mg/dL (1.7-2.3) 10/01/18 13:51 0.40 mg/dL (0.1-1.2) 10/01/18 13:51 AST 12 units/L (5-40) 10/01/18 13:51 ALT 8 units/L (7-56) 10/01/18 13:51 60 units/L (35-129) 10/01/18 13:51 7.1 g/dL (6.3-8.2) 10/01/18 13:51 3.8 g/dL (3.9-5) L 10/01/18 13:51 1.2 % 10/01/18 13:51 Active Medications - Current Medications Current Medications: Generic Name Dose Route Start Last Admin Trade Name Freq PRN Reason Stop Dose Admin Enoxaparin Sodium 40 mg 10/02/18 22:00 Lovenox SUB-Q QDAY@2200 PRINCESS Sodium Chloride 1,000 mls @ 75 mls/hr 10/01/18 20:00 10/01/18 21:42 Nacl 0.9% 1000 Ml IV 75 mls/hr DIRECT PRINCESS Administration Morphine Sulfate 2 mg 10/01/18 19:14 Morphine IV Q4H PRN Pain, Moderate (4-6) Sodium Chloride 10 ml 10/01/18 22:00 10/01/18 21:42 Sodium Chloride Flush Syringe 10 Ml IV 10 ml BID PRINCESS Administration Sodium Chloride 10 ml 10/01/18 19:14 Sodium Chloride Flush Syringe 10 Ml IV PRN PRN LINE FLUSH
--- NOTE | 2018-10-02 10:45 | XRay Report ---
Abdomen single view INDICATION: Abdominal pain IMPRESSION: Gas-distended small and large bowel loops without transition and moderate stool burden th roughout the colon. These findings are most consistent with adynamic ileus versus aerophagia. Signer Name: Adria Raymond MD Signed: 10/02/2018 10:41 AM Workstation Name: [id number]
[2018-10-02 11:12] LABS: BUN/Creatinine Ratio 18; Blood Urea Nitrogen 9 mg/dL (9-20); Calcium 8.4 mg/dL (8.4-10.2); Hemolysis Index 4
--- NOTE | 2018-10-02 18:09 | Consultation ---
REFERRING PHYSICIAN: Joe Cho MD INDICATIONS: 1. Abdominal distention. 2. Constipation. HISTORY OF PRESENT ILLNESS: The patient is a 63-year-old black male with history of hypertension, CHF, status post CVA, now presents for abdominal distention. The patient is confused and unable to give history, so history is per staff and records. The patient had come to the Emergency Room over the last couple of days for abdominal distention, now worsening. The patient reportedly has had no bowel movements over recent days. Denies any nausea, vomiting. The patient subsequently came to Emergency Room, where he had an x-ray and then a CT scan which showed signs of fecal impaction as well as a very dilated colon. The patient subsequently was admitted and GI consulted. When GI was consulted, recommendations for rectal enema and a rectal tube were made. No other specific complaints. PAST MEDICAL HISTORY: 1. Hypertension. 2. Congestive heart failure. 3. GERD. 4. Arthritis. 5. Status post CVA. PAST SURGICAL HISTORY: Reviewed. SOCIAL HISTORY: with no alcohol or tobacco. FAMILY HISTORY: Noncontributory. ALLERGIES: No known drug allergies. MEDICATIONS: Reviewed and updated in chart. REVIEW OF SYSTEMS: GENERAL: Reports weakness. HEENT: No visual complaints or tinnitus. PULMONARY: No shortness of breath, cough or chest pain. GASTROINTESTINAL: Reports abdominal distention and pain. All points of a 13-point review of systems are otherwise negative. PHYSICAL EXAMINATION: VITAL SIGNS: Temperature of 98.0, pulse 90, respirations 18, blood pressure 106/67. GENERAL: Fairly nourished, no acute distress. HEENT: Pupils equal, round and reactive. PULMONARY: Rhonchi. CARDIOVASCULAR: Regular rhythm. Normal S1, S2. ABDOMEN: Positive bowel sounds, distended. LABORATORY DATA: Pertinent for white count of 4.8, hemoglobin and hematocrit of 12.5 and 37.9, platelet count of 165. Chem-7, sodium of 134, potassium 2.7, chloride 98, CO2 of 24, BUN and creatinine of 8 and 0.5. LFTs within normal limits. CT scan showed colonic distention to 12 cm that involving the small intestine. ASSESSMENT: A 63-year-old male with past medical history noted above, presents with abdominal distention, decreased bowel movements. CT scan initially showed a colon diameter at its max of 12 cm. The patient since that time has had a rectal tube placed and with reported good result and decreased in abdominal distention. The patient's examination showed much softer abdomen at this time. Management is noted below. PLAN: 1. Continue n.p.o. for now. 2. KUB now. 3. Avoid narcotics or other pain medications. 4. Based on KUB, we will consider p.o. and further intervention. 5. We will follow. JOB# [id number] [facility], [place]
[2018-10-02] MEDS: LOVENOX SUB-Q SCH (21:35)
[2018-10-02] MEDS: SODIUM CHLORIDE FLUSH SYRINGE 10 ML IV SCH ×2 (21:36→23:34)
[2018-10-02] MEDS: NACL 0.9% 1000 ML 1,000 ML IV SCH (21:39)
[2018-10-03] MEDS: SODIUM CHLORIDE FLUSH SYRINGE 10 ML IV SCH ×2 (09:00→22:04)
--- NOTE | 2018-10-03 09:27 | XRay Report ---
Abdomen AP portable supine 0827 INDICATION: Possible obstruction COMPARISON: 10/02/2018 Gaseous distention of the colon has increased in the area of the transverse colon but does not includ e the right colon without definite obstructive pattern seen. Continued gaseous distention of small rina wel is noted. Pattern continues to likely represent a functional rather than mechanical abnormality t kori follow-up is suggested. Signer Name: Urban Tracy MD Signed: 10/03/2018 9:23 AM Workstation Name: [id number]
[2018-10-03] MEDS: OYSCO D 500 MG-200 UNIT PO SCH ×2 (12:00→18:48)
[2018-10-03] MEDS ORDERED: MILK OF MAGNESIA PO PRN (12:26)
[2018-10-03] MEDS ORDERED: KETOCONAZOLE TP SCH (12:30)
--- NOTE | 2018-10-03 12:32 | Progress Note ---
Assessment and Plan Assessment and plan: 63 YO Male [facility] Facility Resident with CP, GERD, CHF, HTN, CVA, OA, Recurrent Constipation present to ED for evaluation. Pt is confused and unable to provide history. Pt history provided by SNF staff and medical record. As per staff, the patient was found to have abdominal distention today as well as going several days without bowel movement. EMS notified, and upon arrival the patient was found to be in distress and transported to [facility]. Pt seen and evaluated in ED and found to have Abdominal Distention secondary to fecal impaction, megacolon with dilated bowel up to 12cm, and Bowel obstruction. as well as Hypokalemia. GI consulted in ED and patient treated with placement of rectal tube. Pt admitted to [facility] unit and treated with bowel rest and supportive care. Prior admission on 06/28/18 reviewed. Bowel Obstruction Secondary to Fecal Impaction R/O Bowel obstruction Irritable Bowel syndrom by hx Acute on Chronic Diastolic Heart failure Hx of Recurrent Constipation Cerebral Palsy CVA GERD Hypokalemia Plan * Continue supportive care * Repalce K * Surgery eval * May need SBS if ok with GI * Await for family to discuss recurrent impaction * Monitor FMS * GI following * Recheck BMP for Hypokalemia Correction * DVT/GI . History Interval history: Patient is examined today no active distress stable. Hospitalist Physical - Physical exam Narrative exam: VITAL SIGNS: Reviewed. GENERAL: The patient appeared normally developed, Vital signs as documented. HEAD: No signs of head trauma. EYES: Pupils are equal. Extraocular motions intact. EARS: Hearing grossly intact. MOUTH: Oropharynx is normal. NECK: No adenopathy, no JVD. CHEST: Chest with clear breath sounds bilaterally. No wheezes, rales, or rhonchi. CARDIAC: Regular rate and rhythm. S1 and S2, without murmurs, gallops, or rubs. VASCULAR: No Edema. Peripheral pulses normal and equal in all extremities. ABDOMEN: Soft, pegtube, non tender and non distended. No rebound or guarding, and no masses palpated. Bowel Sounds normal. MUSCULOSKELETAL: Extremities without clubbing, cyanosis or edema, atrophy. NEUROLOGIC EXAM: AWAKE, Unable to examine full neuro exam due to mental status. PSYCHIATRIC: Mood normal. SKIN: see detail exam as documented in skin assessment - Constitutional Vitals: Temp Pulse Resp BP Pulse Ox 97.8 F 91 H 18 113/78 95 10/03/18 07:47 10/03/18 07:47 10/03/18 07:47 10/03/18 07:47 10/03/18 07:47 General appearance: Present: mild distress Results - Labs CBC & Chem 7: 10/01/18 13:51 10/02/18 09:57 Labs: Laboratory Last Values WBC 4.8 K/mm3 (4.5-11.0) 10/01/18 13:51 RBC 4.08 M/mm3 (3.65-5.03) 10/01/18 13:51 Hgb 12.5 gm/dl (11.8-15.2) 10/01/18 13:51 Hct 37.9 % (35.5-45.6) 10/01/18 13:51 MCV 93 fl (84-94) 10/01/18 13:51 MCH 31 pg (28-32) 10/01/18 13:51 MCHC 33 % (32-34) 10/01/18 13:51 RDW 13.9 % (13.2-15.2) 10/01/18 13:51 Plt Count 165 K/mm3 (140-440) 10/01/18 13:51 Lymph % (Auto) 9.2 % (13.4-35.0) L 10/01/18 13:51 [place] % (Auto) 4.9 % (0.0-7.3) 10/01/18 13:51 Eos % (Auto) 0.0 % (0.0-4.3) 10/01/18 13:51 Baso % (Auto) 0.2 % (0.0-1.8) 10/01/18 13:51 Lymph # 0.4 K/mm3 (1.2-5.4) L 10/01/18 13:51 Simpson # 0.2 K/mm3 (0.0-0.8) 10/01/18 13:51 Eos # 0.0 K/mm3 (0.0-0.4) 10/01/18 13:51 Baso # 0.0 K/mm3 (0.0-0.1) 10/01/18 13:51 Seg Neutrophils % 85.7 % (40.0-70.0) H 10/01/18 13:51 Seg Neutrophils # 4.1 K/mm3 (1.8-7.7) 10/01/18 13:51 Sodium 138 mmol/L (137-145) 10/02/18 09:57 Potassium 3.3 mmol/L (3.6-5.0) L D 10/02/18 09:57 Chloride 99.0 mmol/L (98-107) 10/02/18 09:57 Carbon Dioxide 27 mmol/L (22-30) 10/02/18 09:57 15 mmol/L 10/02/18 09:57 BUN 9 mg/dL (9-20) 10/02/18 09:57 0.5 mg/dL (0.8-1.5) L 10/02/18 09:57 Estimated GFR > 60 ml/min 10/02/18 09:57 18 % 10/02/18 09:57 Glucose 74 mg/dL (75-100) L 10/02/18 09:57 Lactic Acid 0.60 mmol/L (0.7-2.0) L 10/02/18 05:02 Calcium 8.4 mg/dL (8.4-10.2) 10/02/18 09:57 Magnesium 2.20 mg/dL (1.7-2.3) 10/01/18 13:51 0.40 mg/dL (0.1-1.2) 10/01/18 13:51 AST 12 units/L (5-40) 10/01/18 13:51 ALT 8 units/L (7-56) 10/01/18 13:51 60 units/L (35-129) 10/01/18 13:51 7.1 g/dL (6.3-8.2) 10/01/18 13:51 3.8 g/dL (3.9-5) L 10/01/18 13:51 1.2 % 10/01/18 13:51 Active Medications - Current Medications Current Medications: Generic Name Dose Route Start Last Admin Trade Name Freq PRN Reason Stop Dose Admin Enoxaparin Sodium 40 mg 10/02/18 22:00 10/02/18 21:35 Lovenox SUB-Q 40 mg QDAY@2200 PRINCESS Administration Sodium Chloride 1,000 mls @ 75 mls/hr 10/01/18 20:00 10/02/18 21:39 Nacl 0.9% 1000 Ml IV 75 mls/hr DIRECT PRINCESS Administration Morphine Sulfate 2 mg 10/01/18 19:14 Morphine IV Q4H PRN Pain, Moderate (4-6) Sodium Chloride 10 ml 10/01/18 22:00 10/02/18 23:34 Sodium Chloride Flush Syringe 10 Ml IV Not Given BID RPINCESS Sodium Chloride 10 ml 10/01/18 19:14 Sodium Chloride Flush Syringe 10 Ml IV PRN PRN LINE FLUSH Nutrition/Malnutrition Assess - Dietary Evaluation Nutrition/Malnutrition Findings: Nutrition Notes Start: 10/02/18 14:27 Freq: Status: Active Protocol: Document 10/02/18 14:27 KRANTHI (Rec: 10/02/18 14:33 KRANTHI [email or web address]) Nutrition Notes Need for Assessment generated from: hostess,MST Initial or Follow up Assessment Current Diagnosis Hypertension,Heart Failure, Stroke Other Pertinent Diagnosis Bowel obstruction sec to fecal impaction Current Diet NPO Labs/Tests K 3.3 BG 74 Pertinent Medications NS at 75ml/hr Height 6 ft 2 in Weight 71.259 kg [place] Body Weight (kg) 86.36 BMI 20.1 Weight Status Underweight Subjective/Other Information Pt screened for malnutrition and skin risks (Damián score: 14). He is from [place] with PMHx of cerebral palsy and recurrent constipation. Rectal tube placed for decompression. Burn Absent Trauma Absent #1 Nutrition Diagnosis Altered GI function Etiology chronic constipation As Evidenced by Signs and Symptoms pt NPO with rectal tube in place for decompression Is patient on ventilator? No Is Patient Ambulatory and/or Out of Bed No REE-([facility]-confined to bed) 1886.196 Kcal/Kg value to use for calculation 31 Approximate Energy Requirements Using 2209 kcal/Kg Calculation Used for Recommendations Kcal/kg Additional Notes Pro needs 1.2-1.5g/k-107g /day Fluid needs 1ml/kcal Nutrition Intervention Change Diet Order: Diet advancement when medically feasible Goal #1 Advance diet to meet nutrient needs Goal #2 Improved bowel function Anticipated Discharge Needs: Adequate fluid and fiber intake Follow-Up By: 10/05/18 Additional Comments F/U: diet advancement
--- NOTE | 2018-10-03 13:32 | Gastroenterology Progress Note ---
Assessment and Plan GI: pt presented w/ dilated colon with signs possible fecal impaction - overall better after fecal tube but KUB with more air today - reported large bm's today per staff - tolerating clear liquid diet - await surgery input as ordered by primary team - no plans to scope at this time - no other changes, will [id number] Subjective Date of service: 10/03/18 Interval history: - per staff pt had bm's last night and large amount today Objective - Constitutional Vitals: Temp Pulse Resp BP Pulse Ox 97.8 F 91 H 18 113/78 95 10/03/18 07:47 10/03/18 07:47 10/03/18 07:47 10/03/18 07:47 10/03/18 07:47 General appearance: no acute distress - EENT Eyes: PERRL - Respiratory Respiratory: bilateral: CTA - Cardiovascular Rhythm: regular Heart Sounds: Present: S1 & S2 - Gastrointestinal General gastrointestinal: Present: soft, non-tender, non-distended - Labs CBC & Chem 7: 10/01/18 13:51 10/02/18 09:57
--- NOTE | 2018-10-03 17:35 | Consultation ---
History of Present Illness Consult date: 10/03/18 Reason for consult: other (colonic distention) Requesting physician: FERNANDA DE LEON Chief complaint: abdominal distention - History of present illness History of present illness: 63yo M, custodial patient, with multiple medical problems including CP was brought to the ED with abdominal distention and distress. Rectal tube was placed and patient began to have BMs. Brother reports that abdomen is about normal now and patient wants to eat. We are asked to evaluate the colonic distention. Pt has been in the hospital multiple times recently. This is of the abdominal distention has happened multiple times now. We initially consulted on him during his last admission in June of 2018. Pt currently reports that he has no pain. He had another BM today. Past History Past Medical History: arthritis, GERD, heart failure, hypertension, stroke, other (Cerebral Palsy) Past Surgical History: No surgical history, Other (Reviewed) Social history: . denies: smoking, alcohol abuse, prescription drug abuse Family history: hypertension Medications and Allergies Allergies Allergy/AdvReac Type Severity Reaction Status Date / Time No Known Allergies Allergy Verified 10/01/18 13:25 Home Medications Medication Instructions Recorded Confirmed Last Taken Type AtorvaSTATin [Lipitor] 10 mg PO QHS 02/10/18 10/02/18 Unknown History Calcium Carbonate/Vitamin D3 1 each PO BIDWM 02/10/18 10/02/18 Unknown History [Calcium 600-Vit D3 400 Tablet] Clopidogrel [Plavix] 75 mg PO QDAY 02/10/18 10/02/18 Unknown History Duloxetine HCl [Cymbalta] 60 mg PO HS 02/10/18 10/02/18 Unknown History Isosorbide Dinitrate 30 mg PO DAILY 02/10/18 10/02/18 Unknown History Linaclotide [Linzess] 290 mcg PO QAM 02/10/18 10/02/18 Unknown History Omeprazole 20 mg PO QAM 02/10/18 10/02/18 Unknown History Digoxin [Digox] 125 mcg PO DAILY 02/18/18 10/02/18 Unknown History Acetaminophen [Acetaminophen TAB] 650 mg PO Q4HR PRN 06/28/18 10/02/18 Unknown History Baclofen [Lioresal] 10 mg PO Q8H 06/28/18 10/02/18 Unknown History HYDROcodone/ACETAMINOPHEN 1 each PO Q12HR PRN 06/28/18 10/02/18 Unknown History [Hydrocodone-Acetamin 5-325 mg] Ketoconazole (Nf) [Ketoconazole 1 applic TP 2XW 06/28/18 10/02/18 Unknown History Shampoo (Nf)] Magnesium Hydroxide [Milk of 15 ml PO Q6H PRN 06/28/18 10/02/18 Unknown History Magnesia] Metoclopramide HCl [Reglan TAB] 5 mg PO BID 06/28/18 10/02/18 Unknown History Sennosides [Natural Laxative] 17.2 mg PO HS 06/28/18 10/02/18 Unknown History Tamsulosin HCl [Flomax] 0.8 mg PO HS 06/28/18 10/02/18 Unknown History Sulfamethoxazole/Trimethoprim 1 each PO BID #14 tablet 09/26/18 10/02/18 Unknown Rx [Bactrim DS TAB] Active Meds: Active Medications Acetaminophen (Tylenol) 650 mg PO Q4H PRN PRN Reason: Pain Atorvastatin Calcium (Lipitor) 10 mg PO QHS [facility] Baclofen (Lioresal) 10 mg PO Q8H [facility] Clopidogrel Bisulfate (Plavix) 75 mg PO QDAY [facility] Digoxin (Lanoxin) 0.125 mg PO DAILY [facility] Duloxetine HCl (Cymbalta) 60 mg PO QHS [facility] Enoxaparin Sodium (Lovenox) 40 mg SUB-Q QDAY@2200 [facility] Last Admin: 10/02/18 21:35 Dose: 40 mg Documented by: Sodium Chloride (Nacl 0.9% 1000 Ml) 1,000 mls @ 75 mls/hr IV DIRECT [facility] Last Admin: 10/02/18 21:39 Dose: 75 mls/hr Documented by: Potassium Chloride (Kcl 10meq/100ml) 10 meq in 100 mls @ 100 mls/hr IV Q1H [facility] Stop: 10/03/18 20:59 Isosorbide Dinitrate (Isordil Titradose) 10 mg PO QDAY [facility] Isosorbide Dinitrate (Isordil Titradose) 20 mg PO QDAY [facility] Magnesium Hydroxide (Milk Of Magnesia) 15 ml PO Q6H PRN PRN Reason: Constipation Metoclopramide HCl (Reglan) 5 mg PO BID [facility] Miscellaneous Medication (Calcium Carbonate/Vitamin D3 [Calcium 600-Vit D3 400 Tablet]) 1 each PO BIDWM [facility] Miscellaneous Medication (Ketoconazole (Nf)) 1 applic TP 2XW [facility] Miscellaneous Medication (Linaclotide [Linzess]) 290 mcg PO QAM [facility] Morphine Sulfate (Morphine) 2 mg IV Q4H PRN PRN Reason: Pain, Moderate (4-6) Senna (Senokot) 17.2 mg PO HS [facility] Sodium Chloride (Sodium Chloride Flush Syringe 10 Ml) 10 ml IV BID [facility] Last Admin: 10/02/18 23:34 Dose: Not Given Documented by: Sodium Chloride (Sodium Chloride Flush Syringe 10 Ml) 10 ml IV PRN PRN PRN Reason: LINE FLUSH Tamsulosin HCl (Flomax) 0.8 mg PO HS [facility] Review of Systems - Constitutional no fever, no chills - Cardiovascular chest pain, no shortness of breath - Gastrointestinal change in bowel habits, no abdominal pain, no nausea, no vomiting, no dyspepsia/bloating - Integumentary no rash, no wounds - Neurological other (CP) Exam Vital Signs Temp Pulse Resp BP Pulse Ox 98.1 F 96 H 16 124/80 96 10/01/18 13:55 10/01/18 13:55 10/01/18 13:55 10/01/18 13:55 10/01/18 13:55 - General physical appearance Positive: no distress, no pain, other (elderly man with speech difficulty) - Respiratory Positive: normal expansion, normal respiratory effort, clear to auscultation - Cardiovascular Rhythm: regular - Abdomen Abdomen: Present: soft, tender, bowel sounds hypoactive (with fluid filled sounds), distended (mild). Absent: guarding, rigid, wound, surgical scars - Integumentary no rash, no growths, no abnormal pigmentation - Psychiatric Psychiatric: cooperative Results - Labs 10/01/18 13:51 10/02/18 09:57 - Imaging Abdominal x-ray: report reviewed, image reviewed CT scan - abdomen: report reviewed, image reviewed CT scan - pelvis: report reviewed, image reviewed Assessment and Plan - Patient Problems (1) Colon distention Current Visit: Yes Status: Acute Plan to address problem: Pt stable. Patient has a completely benign abdomen. According to the family, his abdomen is much better compared to admission. It is probably close to normal. Based on the reports from the family and our records from June when he was last admitted with a similar condition, I think we are dealing with a chronic colonic dysfunction. No emergent/urgent surgical intervention is required. We will try neostigmine to see how he responds. As this will be given IM, there is no need for any monitoring. If he responds, then we may just have to find a good bowel regimen to minimize recurrent episodes of distention. If he is unresponsive to this medication or any medication regimen that we can come up with, then consideration could be given to elective colon resection. I'm concerned about resecting the colon and reconnecting him. I'm fearful that he will have multiple bowel movements and develop bed sores from inattentive care at the custodial. If we pursue surgery, then consideration should be given to an ostomy. Will follow along. Please call with questions. Time=30min
[2018-10-03] MEDS ORDERED: BLOXIVERZ IM ONE (18:00)
[2018-10-03] MEDS: NACL 0.9% 1000 ML 1,000 ML IV SCH (18:40)
[2018-10-03] MEDS: LIORESAL PO SCH ×2 (18:42→23:04)
[2018-10-03] MEDS: KCL 10MEQ/100ML 10 MEQ/100 ML BAG IV SCH ×4 (18:43→23:04)
[2018-10-03] MEDS ORDERED: NON-FORMULARY (Metoclopramide Hcl [Reglan Tab] 5 MG) PO SCH (22:00)
[2018-10-03] MEDS ORDERED: NON-FORMULARY (Duloxetine Hcl [Cymbalta] 60 MG) PO SCH (22:00)
[2018-10-03] MEDS: CYMBALTA PO SCH (22:02)
[2018-10-03] MEDS: REGLAN PO SCH (22:02)
[2018-10-03] MEDS: FLOMAX PO SCH (22:02)
[2018-10-03] MEDS: LOVENOX SUB-Q SCH (22:03)
[2018-10-03] MEDS: SENOKOT PO SCH (22:03)
[2018-10-04] MEDS: TYLENOL PO PRN ×2 (02:22→23:02)
[2018-10-04 05:28] LABS: BUN/Creatinine Ratio 13; Blood Urea Nitrogen 4 mg/dL (9-20); Hemolysis Index 5
[2018-10-04] MEDS ORDERED: K-DUR PO ONE ×2 (07:08→10:00)
[2018-10-04] MEDS ORDERED: PROVENTIL IH PRN (08:36)
--- NOTE | 2018-10-04 08:57 | XRay Report ---
CHEST 1 VIEW 8:29 AM INDICATION / CLINICAL INFORMATION: Shortness of breath. COMPARISON: 10/09/2018. FINDINGS: SUPPORT DEVICES: None. HEART / MEDIASTINUM: No significant abnormality. LUNGS / PLEURA: Mild to moderate pleuroparenchymal opacity in the left lower hemithorax is new or has increased significantly. There is mild right basilar subsegmental atelectasis. No pneumothorax. ADDITIONAL FINDINGS: There is mild thoracolumbar scoliosis. IMPRESSION: 1. Left lower lobe pneumonia and/or atelectasis with a small associated pleural effusion. 2. Mild right basilar subsegmental atelectasis. Signer Name: Joshua Still MD Signed: 10/04/2018 8:53 AM Workstation Name: [id number]
[2018-10-04] MEDS: OYSCO D 500 MG-200 UNIT PO SCH ×2 (09:56→17:05)
[2018-10-04] MEDS: PLAVIX PO SCH (09:57)
[2018-10-04] MEDS: REGLAN PO SCH ×3 (09:58→22:59)
[2018-10-04] MEDS: SODIUM CHLORIDE FLUSH SYRINGE 10 ML IV SCH ×2 (09:58→23:02)
[2018-10-04] MEDS ORDERED: LASIX IV ONE ×2 (10:00→15:00)
[2018-10-04] MEDS ORDERED: NON-FORMULARY (Linaclotide [Linzess] 290 MCG) PO SCH (10:00)
[2018-10-04] MEDS ORDERED: NON-FORMULARY (Isosorbide Dinitrate [Isosorbide Dinitrate] 30 MG) PO SCH (10:00)
[2018-10-04] MEDS: LANOXIN PO SCH (10:16)
[2018-10-04] MEDS: ISORDIL TITRADOSE PO SCH ×2 (10:17)
--- NOTE | 2018-10-04 11:04 | Progress Note ---
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 Pt history provided by SNF staff and medical record. As per staff, the patient was found to have abdominal distention today as well as going several days without bowel movement. EMS notified, and upon arrival the patient was found to be in distress and transported to [facility]. Pt seen and evaluated in ED and found to have Abdominal Distention secondary to fecal impaction, megacolon with dilated bowel up to 12cm, and Bowel obstruction. as well as Hypokalemia. GI consulted in ED and patient treated with placement of rectal tube. Pt admitted to [facility] unit and treated with bowel rest and supportive care. Prior admission on 06/28/18 reviewed. * Patient received fluids while inhouse, today developed shortness of breath, xray concerning for left lobar Pneumonia vs Infiltrate, vs Pleural effusion. He has no fever or wbc and leading to believe it is an exacerbation of CHF vs Pleural effusion. Will give a dose of lasix. Fluid restriction, Pulmonary consult. ECHO AND REPEAT XRAY IN AM. * Will also place NGT to LIS, considering worsening abdominal distension on KUB Bowel Obstruction Secondary to Fecal Impaction R/O Bowel obstruction Acute Hypoxic/Hyperbic Respiratory failure Chronic CHF with exacerbation, presume Diastolic Irritable Bowel syndrome by hx Acute on Chronic Diastolic Heart failure Hx of Recurrent Constipation: Distended Cerebral Palsy CVA GERD Hypokalemia No Encephalopathy, at base LINE WITH CEREBRAL PALSY Plan * Continue supportive care * As noted above * Repalce K * Surgery eval NOTED, NO indication for sx, condition is chronic * BIPAP QHS * check ECHO * Await for family to discuss recurrent impaction * Monitor FMS * GI following * Recheck BMP for Hypokalemia Correction * DVT/GI Case discussed with Nursing staff, Respiratory therapist and Patient. The high probability of a clinically significant, sudden or life threatening deterioration of the [Pulmonary] system(s) required my full and direct attention, intervention and personal management. The aggregate critical care time was [35] minutes. This time is in addition to time spent performing reported procedures but includes the following: [x] Data Review and interpretation [x] Patient assessment and monitoring of vital signs [x] Documentation [x] Medication orders and management History Interval history: Patient seen and examined, more awake today but complains of shortness of breath this am and shows increased abdominal distension. Hospitalist Physical - Physical exam Narrative exam: VITAL SIGNS: Reviewed. GENERAL: The patient appeared chronically ill, Vital signs as documented. HEAD: No signs of head trauma. EYES: Pupils are equal. Extraocular motions intact. EARS: Hearing grossly intact. MOUTH: Oropharynx is normal. NECK: No adenopathy, no JVD. CHEST: Chest with dimished breath sounds bilaterally, increased. No wheezes, rales, or rhonchi. CARDIAC: Regular rate and rhythm. Gallops, S1 and S2, without murmurs, or rub s. VASCULAR: trace Edema. Peripheral pulses normal and equal in all extremities. ABDOMEN: Soft, pegtube, non tender and non distended. No rebound or guarding, and no masses palpated. Bowel Sounds normal. MUSCULOSKELETAL: Extremities without clubbing, cyanosis or edema, atrophy. NEUROLOGIC EXAM: AWAKE, Unable to examine full neuro exam due to mental status. PSYCHIATRIC: Mood normal. SKIN: see detail exam as documented in skin assessment - Constitutional Vitals: Temp Pulse Resp BP Pulse Ox 98.0 F 116 H 18 146/101 93 10/04/18 07:28 10/04/18 10:17 10/04/18 08:38 10/04/18 10:17 10/04/18 10:29 General appearance: Present: mild distress Results - Labs CBC & Chem 7: 10/01/18 13:51 10/04/18 13:06 Labs: Laboratory Last Values WBC 4.8 K/mm3 (4.5-11.0) 10/01/18 13:51 RBC 4.08 M/mm3 (3.65-5.03) 10/01/18 13:51 Hgb 12.5 gm/dl (11.8-15.2) 10/01/18 13:51 Hct 37.9 % (35.5-45.6) 10/01/18 13:51 MCV 93 fl (84-94) 10/01/18 13:51 MCH 31 pg (28-32) 10/01/18 13:51 MCHC 33 % (32-34) 10/01/18 13:51 RDW 13.9 % (13.2-15.2) 10/01/18 13:51 Plt Count 165 K/mm3 (140-440) 10/01/18 13:51 Lymph % (Auto) 9.2 % (13.4-35.0) L 10/01/18 13:51 [place] % (Auto) 4.9 % (0.0-7.3) 10/01/18 13:51 Eos % (Auto) 0.0 % (0.0-4.3) 10/01/18 13:51 Baso % (Auto) 0.2 % (0.0-1.8) 10/01/18 13:51 Lymph # 0.4 K/mm3 (1.2-5.4) L 10/01/18 13:51 [place] # 0.2 K/mm3 (0.0-0.8) 10/01/18 13:51 Eos # 0.0 K/mm3 (0.0-0.4) 10/01/18 13:51 Baso # 0.0 K/mm3 (0.0-0.1) 10/01/18 13:51 Seg Neutrophils % 85.7 % (40.0-70.0) H 10/01/18 13:51 Seg Neutrophils # 4.1 K/mm3 (1.8-7.7) 10/01/18 13:51 POC ABG pH 7.203 (7.35-7.45) L 10/04/18 09:22 POC ABG pCO2 68.6 (35-45) H 10/04/18 09:22 POC ABG pO2 66 (80-105) L 10/04/18 09:22 POC ABG HCO3 27.0 (22-26 mml/L) 10/04/18 09:22 POC ABG Total CO2 29 (23-27mmol/L) 10/04/18 09:22 POC ABG O2 Sat 87 10/04/18 09:22 POC ABG Base Excess -1 ((-2) - (+3)mmol/L) 10/04/18 09:22 35 % 10/04/18 09:22 Sodium 135 mmol/L (137-145) L 10/04/18 03:43 Potassium 2.6 mmol/L (3.6-5.0) L* D 10/04/18 03:43 Chloride 99.3 mmol/L (98-107) 10/04/18 03:43 Carbon Dioxide 24 mmol/L (22-30) 10/04/18 03:43 14 mmol/L 10/04/18 03:43 BUN 4 mg/dL (9-20) L 10/04/18 03:43 0.3 mg/dL (0.8-1.5) L 10/04/18 03:43 Estimated GFR > 60 ml/min 10/04/18 03:43 13 % 10/04/18 03:43 Glucose 124 mg/dL (75-100) H 10/04/18 03:43 Lactic Acid 0.60 mmol/L (0.7-2.0) L 10/02/18 05:02 Calcium 8.0 mg/dL (8.4-10.2) L 10/04/18 03:43 Magnesium 2.20 mg/dL (1.7-2.3) 10/01/18 13:51 0.40 mg/dL (0.1-1.2) 10/01/18 13:51 AST 12 units/L (5-40) 10/01/18 13:51 ALT 8 units/L (7-56) 10/01/18 13:51 60 units/L (35-129) 10/01/18 13:51 7.1 g/dL (6.3-8.2) 10/01/18 13:51 3.8 g/dL (3.9-5) L 10/01/18 13:51 1.2 % 10/01/18 13:51 Active Medications - Current Medications Current Medications: Generic Name Dose Route Start Last Admin Trade Name Freq PRN Reason Stop Dose Admin Acetaminophen 650 mg 10/03/18 12:26 10/04/18 02:22 Tylenol PO 650 mg Q4H PRN Administration Pain Albuterol 2.5 mg 10/04/18 08:36 Proventil IH Q4HRT PRN Shortness Of Breath Albuterol/Ipratropium 1 ampul 10/04/18 11:00 Duoneb *Not For Prn Use* IH Q6HRT [facility] Atorvastatin Calcium 10 mg 10/03/18 22:00 10/03/18 22:04 Lipitor PO 10 mg QHS [facility] Administration Calcium/Vitamin D 1 each 10/03/18 12:30 10/04/18 09:56 Oysco D 500 Mg-200 Unit PO 1 each BID@0800,1700 [facility] Administration Clopidogrel Bisulfate 75 mg 10/04/18 10:00 10/04/18 09:57 Plavix PO 75 mg QDAY [facility] Administration Digoxin 0.125 mg 10/04/18 10:00 10/04/18 10:16 Lanoxin PO 0.125 mg DAILY [facility] Administration Duloxetine HCl 60 mg 10/03/18 22:00 10/03/18 22:02 Cymbalta PO 60 mg QHS [facility] Administration Enoxaparin Sodium 40 mg 10/02/18 22:00 10/03/18 22:03 Lovenox SUB-Q 40 mg QDAY@2200 [facility] Administration Potassium Chloride 10 meq in 100 mls @ 100 mls/hr 10/04/18 11:00 Kcl 10meq/100ml IV 10/04/18 14:59 Q1H [facility] Isosorbide Dinitrate 10 mg 10/04/18 10:00 10/04/18 10:17 Isordil Titradose PO 10 mg QDAY [facility] Administration Isosorbide Dinitrate 20 mg 10/04/18 10:00 10/04/18 10:17 Isordil Titradose PO 20 mg QDAY [facility] Administration Magnesium Hydroxide 15 ml 10/03/18 12:26 Milk Of Magnesia PO Q6H PRN Constipation Metoclopramide HCl 5 mg 10/03/18 22:00 10/04/18 09:58 Reglan PO 5 mg BID [facility] Administration Miscellaneous Medication 1 applic 10/03/18 12:30 Ketoconazole (Nf) TP 2XW [facility] Miscellaneous Medication 290 mcg 10/04/18 10:00 Linaclotide [Linzess] PO QAM [facility] Morphine Sulfate 2 mg 10/01/18 19:14 Morphine IV Q4H PRN Pain, Moderate (4-6) Senna 17.2 mg 10/03/18 22:00 10/03/18 22:03 Senokot PO 17.2 mg HS [facility] Administration Sodium Chloride 10 ml 10/01/18 22:00 10/04/18 09:58 Sodium Chloride Flush Syringe 10 Ml IV 10 ml BID [facility] Administration Sodium Chloride 10 ml 10/01/18 19:14 Sodium Chloride Flush Syringe 10 Ml IV PRN PRN LINE FLUSH Tamsulosin HCl 0.8 mg 10/03/18 22:00 10/03/18 22:02 Flomax PO 0.8 mg HS [facility] Administration Nutrition/Malnutrition Assess - Dietary Evaluation Nutrition/Malnutrition Findings: Nutrition Notes Start: 10/02/18 14:27 Freq: Status: Active Protocol: Document 10/02/18 14:27 KRANTHI (Rec: 10/02/18 14:33 KRANTHI [id number] [email or web address]) Nutrition Notes Need for Assessment generated from: research development manager,MST Initial or Follow up Assessment Current Diagnosis Hypertension,Heart Failure, Stroke Other Pertinent Diagnosis Bowel obstruction sec to fecal impaction Current Diet NPO Labs/Tests K 3.3 BG 74 Pertinent Medications NS at 75ml/hr Height 6 ft 2 in Weight 71.259 kg [place] Body Weight (kg) 86.36 BMI 20.1 Weight Status Underweight Subjective/Other Information Pt screened for malnutrition and skin risks (Damián score: 14). He is from [place] with PMHx of cerebral palsy and recurrent constipation. Rectal tube placed for decompression. Burn Absent Trauma Absent #1 Nutrition Diagnosis Altered GI function Etiology chronic constipation As Evidenced by Signs and Symptoms pt NPO with rectal tube in place for decompression Is patient on ventilator? No Is Patient Ambulatory and/or Out of Bed No REE-([facility]-confined to bed) 1886.196 Kcal/Kg value to use for calculation 31 Approximate Energy Requirements Using 2209 kcal/Kg Calculation Used for Recommendations Kcal/kg Additional Notes Pro needs 1.2-1.5g/k-107g /day Fluid needs 1ml/kcal Nutrition Intervention Change Diet Order: Diet advancement when medically feasible Goal #1 Advance diet to meet nutrient needs Goal #2 Improved bowel function Anticipated Discharge Needs: Adequate fluid and fiber intake Follow-Up By: 10/05/18 Additional Comments F/U: diet advancement
[2018-10-04] MEDS ORDERED: POTASSIUM CHLORIDE FEEDTUBE NR (11:05)
--- NOTE | 2018-10-04 11:52 | Gastroenterology Progress Note ---
Assessment and Plan GI: pt presented w/ dilated colon with signs possible fecal impaction -overall improved s/p rectal tube (now removed) with BM overnight per nursing and abdomen returned to baseline according to family -surgery following with recommendations for neostigmine yesterday with consideration for elective colon resection based on progress -currently tolerating clears- okay to advance diet if okay with surgery -recommend continued daily bowel regimen with Miralax and senna -no plan for scope at this time -encourage OOB/turn Q2 -continue supportive care -no further recommendations at this time per GI standpoint, will defer further management to surgery -will sign off, please call if needed Subjective Date of service: 10/04/18 Principal diagnosis: fecal impaction, distended bowel Interval history: Patient placed on Bipap this am due to respiratory distress. Rectal tube no longer in place. BM overnight per nursing. Objective - Constitutional Vitals: Temp Pulse Resp BP Pulse Ox 98.0 F 116 H 18 146/101 93 10/04/18 07:28 10/04/18 10:17 10/04/18 08:38 10/04/18 10:17 10/04/18 10:29 General appearance: mild distress - Respiratory Respiratory: bilateral: diminished - Cardiovascular Rhythm: other (tachycardia) - Gastrointestinal General gastrointestinal: Present: soft, distended (mild), hypoactive bowel sounds - Labs CBC & Chem 7: 10/01/18 13:51 10/04/18 03:43 Labs: Laboratory Results - last 24 hr 10/04/18 10/04/18 03:43 09:22 POC ABG pH 7.203 L POC ABG pCO2 68.6 H POC ABG pO2 66 L POC ABG HCO3 27.0 POC ABG Total CO2 29 POC ABG O2 Sat 87 POC ABG Base Excess -1 FiO2 35 Sodium 135 L Potassium 2.6 L* D Chloride 99.3 Carbon Dioxide 24 Anion Gap 14 BUN 4 L Creatinine 0.3 L Estimated GFR > 60 BUN/Creatinine Ratio 13 Glucose 124 H Calcium 8.0 L
[2018-10-04] MEDS: KCL 10MEQ/100ML 10 MEQ/100 ML BAG IV SCH ×4 (12:00→20:26)
[2018-10-04] MEDS: MIRALAX 3350 PO SCH (14:00)
[2018-10-04] MEDS: DUONEB *Not for PRN Use IH SCH ×3 (14:20→20:36)
--- NOTE | 2018-10-04 15:10 | Progress Note ---
Assessment and Plan - Patient Problems (1) Colon distention Current Visit: Yes Status: Acute Plan to address problem: Pt stable. Difficult to tell from chart what sort of response he had with neostigmine other than he had a BM. Abd is more distended today, but it may be related to swallowing air with the BiPap last night. The abd remains benign. Would try scheduled reglan and enema. If that keeps the abdomen at a normal level for him, then the diet can be advanced. Will follow along. Please call with questions. Time=10min Subjective Date of service: 10/04/18 Patient Reports: Positive: bowel movement, other (Pt had respiratory issues last night. ) Objective Vital Signs - 12hr 10/04/18 10/04/18 10/04/18 03:08 07:28 07:54 Temperature 98.1 F 98.0 F Pulse Rate 47 L 99 H 96 H Pulse Rate [ Anterior Bilateral Throughout] Respiratory 20 20 Rate Respiratory Rate [Anterior Bilateral Throughout] Blood Pressure 118/80 130/82 O2 Sat by Pulse 93 88 89 Oximetry 10/04/18 10/04/18 10/04/18 07:55 08:33 08:36 Temperature Pulse Rate 96 H Pulse Rate [ 75 Anterior Bilateral Throughout] Respiratory Rate Respiratory 18 Rate [Anterior Bilateral Throughout] Blood Pressure O2 Sat by Pulse 90 92 Oximetry 10/04/18 10/04/18 10/04/18 08:38 09:36 10:11 Temperature Pulse Rate 124 H 116 H Pulse Rate [ 76 Anterior Bilateral Throughout] Respiratory Rate Respiratory 18 Rate [Anterior Bilateral Throughout] Blood Pressure 146/101 O2 Sat by Pulse 93 97 Oximetry 10/04/18 10/04/18 10/04/18 10:16 10:17 10:29 Temperature Pulse Rate 116 H 116 H Pulse Rate [ Anterior Bilateral Throughout] Respiratory Rate Respiratory Rate [Anterior Bilateral Throughout] Blood Pressure 146/101 146/101 O2 Sat by Pulse 93 Oximetry 10/04/18 10/04/18 10/04/18 12:27 13:17 14:22 Temperature 98.0 F Pulse Rate 103 H Pulse Rate [ 78 Anterior Bilateral Throughout] Respiratory 20 22 Rate Respiratory 20 Rate [Anterior Bilateral Throughout] Blood Pressure 102/78 O2 Sat by Pulse 99 Oximetry 10/04/18 14:34 Temperature Pulse Rate 73 Pulse Rate [ Anterior Bilateral Throughout] Respiratory Rate Respiratory Rate [Anterior Bilateral Throughout] Blood Pressure 126/88 O2 Sat by Pulse 97 Oximetry - General physical appearance no distress, no pain - Abdomen soft, not tender, bowel sounds hypoactive, distended, not guarding, not rigid, other (tympanitic) - Integumentary no rash, no growths, no abnormal pigmentation - Labs 10/01/18 13:51 10/04/18 13:06 Diabetes panel 10/04/18 10/04/18 Range/Units 03:43 13:06 Sodium 135 L (137-145) mmol/L Potassium 2.6 L* D 2.5 L* (3.6-5.0) mmol/L Chloride 99.3 (98-107) mmol/L Carbon Dioxide 24 (22-30) mmol/L BUN 4 L (9-20) mg/dL Creatinine 0.3 L (0.8-1.5) mg/dL Glucose 124 H (75-100) mg/dL Calcium 8.0 L (8.4-10.2) mg/dL Calcium panel 10/04/18 Range/Units 03:43 Calcium 8.0 L (8.4-10.2) mg/dL Pituitary panel 10/04/18 10/04/18 Range/Units 03:43 13:06 Sodium 135 L (137-145) mmol/L Potassium 2.6 L* D 2.5 L* (3.6-5.0) mmol/L Chloride 99.3 (98-107) mmol/L Carbon Dioxide 24 (22-30) mmol/L BUN 4 L (9-20) mg/dL Creatinine 0.3 L (0.8-1.5) mg/dL Glucose 124 H (75-100) mg/dL Calcium 8.0 L (8.4-10.2) mg/dL Adrenal panel 10/04/18 10/04/18 Range/Units 03:43 13:06 Sodium 135 L (137-145) mmol/L Potassium 2.6 L* D 2.5 L* (3.6-5.0) mmol/L Chloride 99.3 (98-107) mmol/L Carbon Dioxide 24 (22-30) mmol/L BUN 4 L (9-20) mg/dL Creatinine 0.3 L (0.8-1.5) mg/dL Glucose 124 H (75-100) mg/dL Calcium 8.0 L (8.4-10.2) mg/dL
[2018-10-04] MEDS: FLEET PR SCH (17:04)
[2018-10-04] MEDS: CYMBALTA PO SCH (22:59)
[2018-10-04] MEDS: FLOMAX PO SCH (22:59)
[2018-10-04] MEDS: SENOKOT PO SCH (22:59)
[2018-10-04] MEDS: LOVENOX SUB-Q SCH (23:00)
[2018-10-04] MEDS: LIORESAL PO SCH (23:01)
[2018-10-05] MEDS: DUONEB *Not for PRN Use IH SCH ×3 (02:56→15:34)
[2018-10-05 05:48] LABS: Hematocrit 30.6 % (35.5-45.6); Hemoglobin 10.1 gm/dl (11.8-15.2); Mean Corpuscular HGB Conc 33 % (32-34); Mean Corpuscular Volume 88 fl (84-94); Platelet Count 201 K/mm3 (140-440); Red Blood Count 3.48 M/mm3 (3.65-5.03)
[2018-10-05 06:10] LABS: BUN/Creatinine Ratio 13; Blood Urea Nitrogen 14 mg/dL (9-20); Calcium 8.9 mg/dL (8.4-10.2); Hemolysis Index 82
--- NOTE | 2018-10-05 08:11 | XRay Report ---
CHEST 1 VIEW INDICATION: shortness of breath. COMPARISON: 10/04/2018 FINDINGS: Support devices: None. Heart: Within normal limits. Lungs/Pleura: Airspace opacity at the left lung base has essentially resolved consistent with improve d atelectasis. There is mild increase in right lower lobe atelectasis. The upper lung zones remain cl ear. No large pleural effusion or pneumothorax is identified. Additional findings: None. IMPRESSION: Decreased left lower lobe partial atelectasis. Increased right lower lobe partial atelectasis. Signer Name: Jerry Lara Jr, MD Signed: 10/05/2018 8:07 AM Workstation Name: [id number]
--- NOTE | 2018-10-05 08:45 | Progress Note ---
Assessment and Plan - Patient Problems (1) Colon distention Current Visit: Yes Status: Acute Plan to address problem: Pt stable. Less distended today. Read note about vomiting. However, the breakfast tray in front of him is almost completely eaten. Unless he keeps vomiting, I would hold off on NGT. I think it would still be helpful to replace the rectal tube. No tube was seen this morning. Continue with clear liquid diet for now. Please call with questions. time=10min Subjective Date of service: 10/05/18 Patient Reports: Positive: other (reviewed nursing notes from last night. ) Objective Vital Signs - 12hr 10/04/18 10/04/18 10/04/18 20:59 23:00 23:02 Temperature Pulse Rate Pulse Rate [ 107 H Anterior Bilateral Throughout] Respiratory 20 20 Rate Respiratory 20 Rate [Anterior Bilateral Throughout] Respiratory 20 Rate [ Generalized] Blood Pressure O2 Sat by Pulse 96 Oximetry 10/05/18 10/05/18 10/05/18 00:02 02:23 02:25 Temperature 98.4 F Pulse Rate 63 Pulse Rate [ Anterior Bilateral Throughout] Respiratory 20 18 Rate Respiratory Rate [Anterior Bilateral Throughout] Respiratory Rate [ Generalized] Blood Pressure 133/86 O2 Sat by Pulse Oximetry 10/05/18 10/05/18 10/05/18 02:59 03:02 03:14 Temperature Pulse Rate 87 Pulse Rate [ 97 H 95 H Anterior Bilateral Throughout] Respiratory 25 H Rate Respiratory 24 24 Rate [Anterior Bilateral Throughout] Respiratory Rate [ Generalized] Blood Pressure O2 Sat by Pulse 100 Oximetry 10/05/18 10/05/18 07:43 08:06 Temperature 98.0 F Pulse Rate 104 H Pulse Rate [ Anterior Bilateral Throughout] Respiratory 20 20 Rate Respiratory Rate [Anterior Bilateral Throughout] Respiratory Rate [ Generalized] Blood Pressure 120/76 O2 Sat by Pulse 97 96 Oximetry - General physical appearance no distress, no pain - Respiratory normal expansion, normal respiratory effort - Abdomen soft, not tender, bowel sounds hypoactive, distended (less than yesterday), not guarding, not rigid - Rectum other (no rectal tube in place) - Integumentary no rash, no growths, no abnormal pigmentation - Labs 10/05/18 05:11 10/05/18 05:11 Diabetes panel 10/04/18 10/04/18 10/05/18 Range/Units 13:06 23:03 05:11 Sodium 140 (137-145) mmol/L Potassium 2.5 L* 3.2 L D 4.6 D (3.6-5.0) mmol/L Chloride 110.9 H (98-107) mmol/L Carbon Dioxide 22 (22-30) mmol/L BUN 14 (9-20) mg/dL Creatinine 1.1 D (0.8-1.5) mg/dL Glucose 141 H (75-100) mg/dL Calcium 8.9 (8.4-10.2) mg/dL Calcium panel 10/05/18 Range/Units 05:11 Calcium 8.9 (8.4-10.2) mg/dL Pituitary panel 10/04/18 10/04/18 10/05/18 Range/Units 13:06 23:03 05:11 Sodium 140 (137-145) mmol/L Potassium 2.5 L* 3.2 L D 4.6 D (3.6-5.0) mmol/L Chloride 110.9 H (98-107) mmol/L Carbon Dioxide 22 (22-30) mmol/L BUN 14 (9-20) mg/dL Creatinine 1.1 D (0.8-1.5) mg/dL Glucose 141 H (75-100) mg/dL Calcium 8.9 (8.4-10.2) mg/dL Adrenal panel 10/04/18 10/04/18 10/05/18 Range/Units 13:06 23:03 05:11 Sodium 140 (137-145) mmol/L Potassium 2.5 L* 3.2 L D 4.6 D (3.6-5.0) mmol/L Chloride 110.9 H (98-107) mmol/L Carbon Dioxide 22 (22-30) mmol/L BUN 14 (9-20) mg/dL Creatinine 1.1 D (0.8-1.5) mg/dL Glucose 141 H (75-100) mg/dL Calcium 8.9 (8.4-10.2) mg/dL
[2018-10-05] MEDS: ISORDIL TITRADOSE PO SCH ×2 (09:09→09:10)
[2018-10-05] MEDS: OYSCO D 500 MG-200 UNIT PO SCH (09:09)
[2018-10-05] MEDS: REGLAN PO SCH ×2 (09:09→14:11)
[2018-10-05] MEDS: SODIUM CHLORIDE FLUSH SYRINGE 10 ML IV SCH (09:10)
[2018-10-05] MEDS: PLAVIX PO SCH (09:10)
[2018-10-05] MEDS: MIRALAX 3350 PO SCH (09:10)
[2018-10-05] MEDS: LANOXIN PO SCH (09:10)
[2018-10-05] MEDS: FLEET PR SCH (09:12)
--- NOTE | 2018-10-05 11:55 | Discharge Summary ---
Providers - Providers Date of Admission: 10/01/18 19:14 Date of discharge: 10/05/18 Attending physician: KIMMY FONG MD 10/01/18 17:47 Consult to Physician [CONS] Urgent Comment: Consulting Provider: DOUG HERRERA Physician Instructions: Reason For Exam: fecal impaction, distended bowel 10/03/18 12:30 Consult to Physician [CONS] Routine Comment: Indira Consulting Provider: YASMEEN GANDHI Physician Instructions: CONSULT WAS CALLED TO OKSANA HUERTAS/MAN Reason For Exam: ?bowel obstruction Primary care physician: FLORENTINO MENSAH Hospitalization Reason for admission: Obstipation, acute on chronic repiratory failure, acute on chronic CHF Condition: Poor Pertinent studies: ECHO CXR Hospital course: 63 YO [facility] Res[facility] with CP, GERD, CHF, HTN, CVA, OA, Recurrent Constipation present to ED for evaluation. Pt history provided by SNF staff and medical record. As per staff, the patient was found to have abdominal distention today as well as going several days without bowel movement. EMS notified, and upon arrival the patient was found to be in distress and transported to [facility]. Pt seen and evaluated in ED and found to have Abdominal Distention secondary to fecal impaction, megacolon with dilated bowel up to 12cm, and Bowel obstruction. as well as Hypokalemia. GI consulted in ED and patient treated with placement of rectal tube. Pt admitted to [facility] unit and treated with bowel rest and supportive care. Prior admission on 06/28/18 reviewed. Patient received fluids while inhouse, and developed shortness of breath, xray concerning for left lobar Pneumonia vs Infiltrate, vs Pleural effusion. He has no fever or wbc and leading to believe it is an exacerbation of CHF vs Pleural effusion. treated with lasix. Fluid restriction, and CXR this morning showed resolution. ECHO showed EF 20-25%. patient is DNR/DNI and no need of invasive treatments needed. Bowel Obstruction Secondary to Fecal Impaction R/O Bowel obstruction; patient has bowel movement and distension resolved. Acute Hypoxic/Hyperbic Respiratory failure; patient is on 2-3 Litres of O2. Chronic systolic CHF with exacerbation, presume Diastolic; resolved. treatment as stated above. Irritable Bowel syndrome by hx Cerebral Palsy, CVA; supportive care Hypokalemia; repleted No Encephalopathy, at base LINE WITH CEREBRAL PALSY Patient's DNR/DNI. Prognosis poor and discharged back to nursing facility. Appropriate medications are concerned at the time of discharge. Disposition: [id number]/[place]-[id number] SNF [facility] Time spent for discharge: 32 minutes - Discharge Diagnoses (1) Respiratory failure Status: Acute (2) Bedbound Status: Acute (3) Bowel obstruction Status: Acute Qualifiers: Intestinal obstruction type: other intestinal impaction Qualified Code(s): K56.49 - Other impaction of intestine; K56.4 - Other impaction of intestine (4) Cerebral palsy Status: Acute Qualifiers: Cerebral palsy type: unspecified type Qualified Code(s): G80.9 - Cerebral palsy, unspecified (5) Colon distention Status: Acute (6) Fecal impaction Status: Acute (7) Hypokalemia Status: Acute (8) Abdominal distension Status: Acute (9) CHF (congestive heart failure) Status: Acute Qualifiers: Heart failure type: diastolic Heart failure chronicity: acute on chronic Qualified Code(s): I50.33 - Acute on chronic diastolic (congestive) heart failure (10) CAD (coronary artery disease) Status: Chronic Qualifiers: Coronary Disease-Associated Artery/Lesion type: [place] artery [place] vs. transplanted heart: [place] heart Associated angina: without angina Qualified Code(s): I25.10 - Atherosclerotic heart disease of [place] coronary artery without angina pectoris (11) GERD (gastroesophageal reflux disease) Status: Chronic Qualifiers: Esophagitis presence: without esophagitis Qualified Code(s): K21.9 - Gastro-esophageal reflux disease without esophagitis (12) HLD (hyperlipidemia) Status: Chronic Qualifiers: Hyperlipidemia type: mixed hyperlipidemia Qualified Code(s): E78.2 - Mixed hyperlipidemia (13) HTN (hypertension) Status: Chronic Qualifiers: Hypertension type: essential hypertension Qualified Code(s): I10 - Essential (primary) hypertension Core Measure Documentation - Palliative Care Palliative Care/ Comfort Measures: Not Applicable - Core Measures Any of the following diagnoses?: none Exam - Physical Exam Narrative exam: Patient is lethargic. The patient appeared well nourished and normally developed. Vital signs as documented. Head exam is unremarkable. No scleral icterus . Neck is without jugular venous distension, thyromegaly, or carotid bruits. Lungs are clear to auscultation. Cardiac exam reveals regular rate and Rhythm. First and second heart sounds normal. No murmurs, rubs or gallops. Abdominal exam reveals normal bowel sounds, no masses, no organomegaly and no aortic enlargement. Extremities are contracted. [employer]: lethargic. - Constitutional Vitals: Temp Pulse Resp BP Pulse Ox 98.0 F 104 H 20 120/76 96 10/05/18 07:43 10/05/18 07:43 10/05/18 08:06 10/05/18 07:43 10/05/18 08:06 Plan Activity: fall precautions Weight Bearing Status: Non-Weight Bearing Diet: other Wound: per wound nurse instructions Follow up with: FLORENTINO MENSAH MD [Primary Care Provider] - 7 Days
[2018-10-05 15:27] VITALS: BP 108/61
== END 2018-10-05 17:00 | DRG 388 ==
LOC: ED 12:57 → 2B-ACE 19:14
PROVIDERS: ADMIT Internal Medicine; ATTEND Internal Medicine
PROC: 0D9670Z Drainage of Stomach with Drainage Device, Via Natural or Artificial Opening (ICD-10-PCS; principal; 2018-10-01)
PROC: 5A09357 Assistance with Respiratory Ventilation, Less than 24 Consecutive Hours, Continuous Positive Airway Pressure (ICD-10-PCS; 2018-10-04)
PROC: 4A033R1 Measurement of Arterial Saturation, Peripheral, Percutaneous Approach (ICD-10-PCS; 2018-10-04)
PROC: 5A09357 Assistance with Respiratory Ventilation, Less than 24 Consecutive Hours, Continuous Positive Airway Pressure (ICD-10-PCS; 2018-10-05)
DX: K56.41 Fecal impaction (principal); J96.22 Acute and chronic respiratory failure with hypercapnia; I50.33 Acute on chronic diastolic (congestive) heart failure; J96.21 Acute and chronic respiratory failure with hypoxia; K59.39 Other megacolon; K56.49 Other impaction of intestine; K58.9 Irritable bowel syndrome, unspecified; Z66 Do not resuscitate; E78.2 Mixed hyperlipidemia; E87.6 Hypokalemia; G80.9 Cerebral palsy, unspecified; K21.9 Gastro-esophageal reflux disease without esophagitis; I11.0 Hypertensive heart disease with heart failure; Z82.49 Family history of ischemic heart disease and other diseases of the circulatory system; Z86.73 Personal history of transient ischemic attack (TIA), and cerebral infarction without residual deficits; Z74.01 Bed confinement status
CPT/HCPCS: 36415; 36600; 71045; 74018; 74022; 74176; 80048; 80053; 82140; 82803; 83735; 84132; 85025; 85027; 87116; 93306; 94640; 94660; 94760; 96374; 96375; G0378; A9270-GY; J1170; J1650; J1885; J1940; J2405; J2710; J3480; J7030